=== PATIENT | female | born 1950 | race Caucasian/White ===

== ENCOUNTER → 2017-11-21 | Outpatient (CLI) | payer OTHER ==
[~2017-11-21] MED LIST: ABAC300; ACET325 PO; ACYC400 PO; ALBU90OI6 INH; ALBU90OI61 INH; ALUMAG30SU PO; BIOTIN1 MG PO; BISA10S PR; CEFD300 PO; CYCL10 PO; DOCU100 PO; ESTNORT PO; ESTR2 PO; FLUO10 PO; FLUO20 PO; Flonase 0.05% N16 GM; GABA100 PO; HYDACE10B; HYDACE5 PO; HYDR1TAB94 PO; K-Dur20 MEQ PO; METR500 PO; MUPI2TO TOP; MUSCLE RELAXER; NAPR500; NAPR500 PO; NICO14TP TOP; Norco 10-325 T1 EACH PO; Norco 5-325 Ta1 EACH PO; OMEP20ER PO; OXYACE5T PO; PARO20 PO; POLY17UD PO; POTCHL20ER PO; PRED5 PO; PROCODE120 PO; TRAZ150T57 PO; TRAZ50 PO; Tylenol325 MG PO; VALA500; VARE1 PO; Zanaflex4 MG; Zofran Odt4 MG SL
[2017-11-21 15:12] LABS: BASOPHILS ABSOLUTE AUTO 0.07 K/mm3 (0.00-0.23); BASOPHILS PERCENT AUTO 1 % (0-2); EOSINOPHILS ABSOLUTE AUTO 0.03 K/mm3 (0.00-0.68); EOSINOPHILS PERCENT AUTO 0 % (0-6); Hematocrit 44.8 % (33.0-51.0); Hemoglobin 15.2 g/dL (11.5-16.0); IMMATURE GRAN ABSOLUTE AUTO 0.03 K/mm3 (0.00-0.10); IMMATURE GRAN PERCENT AUTO 0 % (0-1); LYMPHOCYTES ABSOLUTE AUTO 0.92 K/mm3 (0.84-5.20); LYMPHOCYTES PERCENT AUTO 7 % (21-46); MONOCYTES ABSOLUTE AUTO 0.84 K/mm3 (0.16-1.47); MONOCYTES PERCENT AUTO 6 % (4-13); Mean Corpuscular HGB 31.1 pg (26.0-34.0); Mean Corpuscular HGB Conc 33.9 g/dL (31.5-36.5); Mean Corpuscular Volume 92 fL (80-100); NEUTROPHILS ABSOLUTE AUTO 11.86 K/mm3 (1.96-9.15); NEUTROPHILS PERCENT AUTO 86 % (41-73); Platelet Count 433 K/mm3 (150-400); RDW Coefficient Variation 13.5 % (11.7-14.2); RDW Standard Deviation 45.9 fL (35.1-46.3); Red Blood Cell Count 4.89 M/mm3 (3.80-5.20); White Blood Cell Count 13.75 K/mm3 (4.00-11.30)
[2017-11-21 15:21] LABS: Alanine Aminotransfer (ALT/SGP 24 U/L (12-78); Albumin, Blood 3.7 g/dL (3.4-5.0); Albumin/Globulin Ratio 0.9 (0.8-1.8); Alk Phos 114 U/L (40-126); Anion Gap 11 mmol/L (6-16); Aspartate Aminotrans (AST/SGOT 21 U/L (12-37); Bilirubin, Total 0.4 mg/dL (0.1-1.0); Blood Urea Nitrogen 24 mg/dL (8-24); Bun/Creatinine Ratio 26.1 (12.0-20.0); CO2, Blood 29 mmol/L (21-32); Calcium, Blood 9.8 mg/dL (8.5-10.1); Chloride, Blood 103 mmol/L (98-108); Creatinine, Blood 0.92 mg/dL (0.40-1.00); Globulin, Blood 4.1 g/dL (2.2-4.0); Glomerular Filtration Rate >60 (60-); Glucose, Blood 116 mg/dL (70-99); Potassium, Blood 4.2 mmol/L (3.5-5.5); Sodium, Blood 143 mmol/L (136-145); Total Protein, Blood 7.8 g/dL (6.4-8.2)
== END ==
LOC: LAB SHORT 15:04
PROVIDERS: Family Medicine
DX: R10.9 Unspecified abdominal pain (principal)
CPT/HCPCS: 80053; 83690; 85025

== ENCOUNTER 2018-05-22 03:02 | Inpatient (IN) | payer OTHER ==
[~2018-05-22] VITALS: Ht 154.9 cm; Wt 43.7 kg
[~2018-05-22 03:02] MED LIST changes: +Desyrel150 MG PO
[2018-05-22 04:19] LABS: BASOPHILS ABSOLUTE AUTO 0.08 K/mm3 (0.00-0.23); BASOPHILS PERCENT AUTO 0 % (0-2); EOSINOPHILS ABSOLUTE AUTO 0.18 K/mm3 (0.00-0.68); EOSINOPHILS PERCENT AUTO 1 % (0-6); Hematocrit 51.5 % (33.0-51.0); Hemoglobin 16.8 g/dL (11.5-16.0); IMMATURE GRAN ABSOLUTE AUTO 0.07 K/mm3 (0.00-0.10); IMMATURE GRAN PERCENT AUTO 0 % (0-1); LYMPHOCYTES ABSOLUTE AUTO 1.59 K/mm3 (0.84-5.20); LYMPHOCYTES PERCENT AUTO 8 % (21-46); MONOCYTES ABSOLUTE AUTO 1.44 K/mm3 (0.16-1.47); MONOCYTES PERCENT AUTO 8 % (4-13); Mean Corpuscular HGB 30.6 pg (26.0-34.0); Mean Corpuscular HGB Conc 32.6 g/dL (31.5-36.5); Mean Corpuscular Volume 94 fL (80-100); Mean Platelet Volume 8.7 fL (9.1-12.4); NEUTROPHILS ABSOLUTE AUTO 15.82 K/mm3 (1.96-9.15); NEUTROPHILS PERCENT AUTO 83 % (41-73); Platelet Count 316 K/mm3 (150-400); RDW Coefficient Variation 14.6 % (11.7-14.2); RDW Standard Deviation 50.5 fL (35.1-46.3); Red Blood Cell Count 5.49 M/mm3 (3.80-5.20); White Blood Cell Count 19.18 K/mm3 (4.00-11.30)
[2018-05-22 04:36] LABS: Alanine Aminotransfer (ALT/SGP 37 U/L (12-78); Albumin/Globulin Ratio 1.1 (0.8-1.8); Alk Phos 109 U/L (50-136); Anion Gap 7 mmol/L (6-16); Aspartate Aminotrans (AST/SGOT 23 U/L (12-37); Bilirubin, Total 0.4 mg/dL (0.1-1.0); Blood Urea Nitrogen 18 mg/dL (8-24); Bun/Creatinine Ratio 21.2 (12.0-20.0); CO2, Blood 29 mmol/L (21-32); Chloride, Blood 105 mmol/L (98-108); Creatinine, Blood 0.85 mg/dL (0.40-1.00); Globulin, Blood 3.7 g/dL (2.2-4.0); Glomerular Filtration Rate >60 (60-); Glucose, Blood 183 mg/dL (70-99); Potassium, Blood 4.3 mmol/L (3.5-5.5); Sodium, Blood 141 mmol/L (136-145); Total Protein, Blood 7.7 g/dL (6.4-8.2)
[2018-05-22] MEDS ORDERED: Voltaren100 GM TOP (09:56)
[2018-05-22] MEDS ORDERED: MIRT15 PO (09:56)
[2018-05-23 05:50] LABS: BASOPHILS ABSOLUTE AUTO 0.03 K/mm3 (0.00-0.23); BASOPHILS PERCENT AUTO 0 % (0-2); EOSINOPHILS ABSOLUTE AUTO 0.13 K/mm3 (0.00-0.68); EOSINOPHILS PERCENT AUTO 2 % (0-6); Hematocrit 43.3 % (33.0-51.0); Hemoglobin 14.1 g/dL (11.5-16.0); IMMATURE GRAN ABSOLUTE AUTO 0.02 K/mm3 (0.00-0.10); IMMATURE GRAN PERCENT AUTO 0 % (0-1); LYMPHOCYTES ABSOLUTE AUTO 2.22 K/mm3 (0.84-5.20); LYMPHOCYTES PERCENT AUTO 28 % (21-46); MONOCYTES ABSOLUTE AUTO 0.73 K/mm3 (0.16-1.47); MONOCYTES PERCENT AUTO 9 % (4-13); Mean Corpuscular HGB 30.7 pg (26.0-34.0); Mean Corpuscular HGB Conc 32.6 g/dL (31.5-36.5); Mean Corpuscular Volume 94 fL (80-100); Mean Platelet Volume 8.4 fL (9.1-12.4); NEUTROPHILS ABSOLUTE AUTO 4.82 K/mm3 (1.96-9.15); NEUTROPHILS PERCENT AUTO 61 % (41-73); Platelet Count 256 K/mm3 (150-400); RDW Coefficient Variation 14.6 % (11.7-14.2); RDW Standard Deviation 50.4 fL (35.1-46.3); White Blood Cell Count 7.95 K/mm3 (4.00-11.30)
[2018-05-23 06:17] LABS: Alanine Aminotransfer (ALT/SGP 26 U/L (12-78); Albumin, Blood 3.2 g/dL (3.4-5.0); Alk Phos 82 U/L (50-136); Anion Gap 8 mmol/L (6-16); Aspartate Aminotrans (AST/SGOT 18 U/L (12-37); Bilirubin, Total 0.7 mg/dL (0.1-1.0); Blood Urea Nitrogen 10 mg/dL (8-24); Bun/Creatinine Ratio 14.5 (12.0-20.0); CO2, Blood 25 mmol/L (21-32); Calcium, Blood 8.6 mg/dL (8.5-10.1); Chloride, Blood 110 mmol/L (98-108); Creatinine, Blood 0.69 mg/dL (0.40-1.00); Globulin, Blood 3.1 g/dL (2.2-4.0); Glomerular Filtration Rate >60 (60-); Glucose, Blood 76 mg/dL (70-99); Potassium, Blood 3.8 mmol/L (3.5-5.5); Sodium, Blood 143 mmol/L (136-145); Total Protein, Blood 6.3 g/dL (6.4-8.2)
[2018-05-23] MEDS ORDERED: VARE1 PO (11:48)
== END 2018-05-23 12:16 | disposition home or self-care (01) | DRG 389 ==
LOC: ER 03:02 → ERHOLD 05:25 → SURS 05:25
PROVIDERS: Emergency Medicine; Internal Medicine
DX: K56.609 Unspecified intestinal obstruction, unspecified as to partial versus complete obstruction (principal); Z68.1 Body mass index [BMI] 19.9 or less, adult; I25.2 Old myocardial infarction; F17.210 Nicotine dependence, cigarettes, uncomplicated; J44.9 Chronic obstructive pulmonary disease, unspecified; M81.0 Age-related osteoporosis without current pathological fracture; G43.909 Migraine, unspecified, not intractable, without status migrainosus; F41.9 Anxiety disorder, unspecified; E86.0 Dehydration; Z90.49 Acquired absence of other specified parts of digestive tract; D72.829 Elevated white blood cell count, unspecified; E88.09 Other disorders of plasma-protein metabolism, not elsewhere classified
CPT/HCPCS: 36415; 74176; 80053; 83690; 85025; 85027; 96361; 96374; 96375; 96376; 99285-25; J1650; J2405; J3010; J7030

== ENCOUNTER 2018-10-09 08:30 | Day surgery (SDC) | payer OTHER, SELFPAY ==
[~2018-10-09] VITALS: Ht 154.9 cm; Wt 43.5 kg
[~2018-10-09 08:30] MED LIST changes: +MIRT15 PO; +TRAM50 PO; +Voltaren100 GM TOP
== END 2018-10-09 10:36 | disposition home or self-care (01) ==
LOC: ORSCSDS 08:30
PROVIDERS: Surgery
PROC: 0DJD8ZZ Inspection of Lower Intestinal Tract, Via Natural or Artificial Opening Endoscopic (ICD-10-PCS; principal; 2018-10-09 09:45)
DX: Z12.11 Encounter for screening for malignant neoplasm of colon (principal); Z86.010 Personal history of colon polyps; E03.9 Hypothyroidism, unspecified; I25.2 Old myocardial infarction; F41.8 Other specified anxiety disorders; J44.9 Chronic obstructive pulmonary disease, unspecified; Z87.891 Personal history of nicotine dependence; Z79.899 Other long term (current) drug therapy
CPT/HCPCS: J2704; J7120

== ENCOUNTER 2018-12-22 12:56 | Emergency (ER) | payer OTHER, SELFPAY ==
[~2018-12-22] VITALS: Ht 154.9 cm; Wt 45.4 kg
[2018-12-22 13:29] LABS: Source, Urine Clean Catch
[2018-12-22 13:29] LABS: BASOPHILS ABSOLUTE AUTO 0.03 K/mm3 (0.00-0.23); BASOPHILS PERCENT AUTO 0 % (0-2); EOSINOPHILS ABSOLUTE AUTO 0.06 K/mm3 (0.00-0.68); EOSINOPHILS PERCENT AUTO 1 % (0-6); Hematocrit 48.5 % (33.0-51.0); Hemoglobin 15.5 g/dL (11.5-16.0); IMMATURE GRAN ABSOLUTE AUTO 0.01 K/mm3 (0.00-0.10); IMMATURE GRAN PERCENT AUTO 0 % (0-1); LYMPHOCYTES ABSOLUTE AUTO 2.22 K/mm3 (0.84-5.20); LYMPHOCYTES PERCENT AUTO 30 % (21-46); MONOCYTES ABSOLUTE AUTO 0.65 K/mm3 (0.16-1.47); MONOCYTES PERCENT AUTO 9 % (4-13); Mean Corpuscular HGB 29.8 pg (26.0-34.0); Mean Corpuscular Volume 93 fL (80-100); Mean Platelet Volume 8.8 fL (9.1-12.4); NEUTROPHILS ABSOLUTE AUTO 4.52 K/mm3 (1.96-9.15); NEUTROPHILS PERCENT AUTO 60 % (41-73); Platelet Count 356 K/mm3 (150-400); RDW Coefficient Variation 14.4 % (11.7-14.2); RDW Standard Deviation 49.9 fL (35.1-46.3); White Blood Cell Count 7.49 K/mm3 (4.00-11.30)
[2018-12-22 13:34] LABS: Bilirubin, Urine Neg (Neg); Blood, Urine 3+ (Neg); Color, Urine Yellow (P-Yellow); Glucose Qualitative, Urine Neg (Neg); Ketones, Urine 4+ (Neg); Specific Gravity, Urine 1.025 (1.003-1.022); Urobilinogen, Urine 1+ (Normal)
[2018-12-22 13:44] LABS: Leukocyte Esterase, Urine 1+ (Neg); Nitrite, Urine Pos (Neg); Protein, Urine 2+ (Neg)
[2018-12-22 13:46] LABS: Appearance, Urine Hazy (Clear)
[2018-12-22 13:57] LABS: Alanine Aminotransfer (ALT/SGP 20 U/L (12-78); Albumin, Blood 3.9 g/dL (3.4-5.0); Alk Phos 103 U/L (50-136); Anion Gap 6 mmol/L (6-16); Aspartate Aminotrans (AST/SGOT 19 U/L (12-37); Bilirubin, Total 0.5 mg/dL (0.1-1.0); Blood Urea Nitrogen 19 mg/dL (8-24); Bun/Creatinine Ratio 24.6 (12.0-20.0); CO2, Blood 26 mmol/L (21-32); Calcium, Blood 9.5 mg/dL (8.5-10.1); Chloride, Blood 106 mmol/L (98-108); Creatinine, Blood 0.77 mg/dL (0.40-1.00); Globulin, Blood 3.8 g/dL (2.2-4.0); Glomerular Filtration Rate >60 (60-); Glucose, Blood 74 mg/dL (70-99); Potassium, Blood 3.8 mmol/L (3.5-5.5); Sodium, Blood 138 mmol/L (136-145); Total Protein, Blood 7.7 g/dL (6.4-8.2)
[2018-12-22 14:03] LABS: Bacteria Few /hpf; Calcium Oxalate Crystals Many /hpf; Squamous Epithelial Cells Few /hpf (Few)
[2018-12-22] MEDS ORDERED: Roxicodone5 MG PO (17:16)
[2018-12-22] MEDS ORDERED: Bentyl20 MG PO (17:16)
[2018-12-22] MEDS ORDERED: ONDA4ODT MM (17:16)
== END 2018-12-22 17:34 | disposition home or self-care (01) ==
LOC: ER 12:56
PROVIDERS: Physician Assistant
DX: K52.9 Noninfective gastroenteritis and colitis, unspecified (principal); Z88.8 Allergy status to other drugs, medicaments and biological substances; Z79.899 Other long term (current) drug therapy; J44.9 Chronic obstructive pulmonary disease, unspecified; F32.9 Major depressive disorder, single episode, unspecified; G43.909 Migraine, unspecified, not intractable, without status migrainosus; I25.2 Old myocardial infarction; F17.210 Nicotine dependence, cigarettes, uncomplicated
CPT/HCPCS: 36415; 74177; 80053; 81001; 83690; 85025; 87086; 96372-59; 96374-59; 96375; 99284-25; J0500; J2405; J3010; Q9967

== ENCOUNTER 2019-02-23 19:52 | Emergency (ER) | payer OTHER ==
[~2019-02-23] VITALS: Ht 154.9 cm; Wt 43.1 kg
[~2019-02-23 19:52] MED LIST changes: +Bentyl20 MG PO; +ONDA4ODT MM; +Roxicodone5 MG PO
[2019-02-23 20:35] LABS: BASOPHILS ABSOLUTE AUTO 0.05 K/mm3 (0.00-0.23); BASOPHILS PERCENT AUTO 1 % (0-2); EOSINOPHILS ABSOLUTE AUTO 0.11 K/mm3 (0.00-0.68); EOSINOPHILS PERCENT AUTO 1 % (0-6); Hematocrit 47.5 % (33.0-51.0); Hemoglobin 15.7 g/dL (11.5-16.0); IMMATURE GRAN ABSOLUTE AUTO 0.02 K/mm3 (0.00-0.10); IMMATURE GRAN PERCENT AUTO 0 % (0-1); LYMPHOCYTES ABSOLUTE AUTO 1.14 K/mm3 (0.84-5.20); LYMPHOCYTES PERCENT AUTO 11 % (21-46); MONOCYTES ABSOLUTE AUTO 0.99 K/mm3 (0.16-1.47); MONOCYTES PERCENT AUTO 10 % (4-13); Mean Corpuscular HGB 30.1 pg (26.0-34.0); Mean Corpuscular HGB Conc 33.1 g/dL (31.5-36.5); Mean Corpuscular Volume 91 fL (80-100); Mean Platelet Volume 8.9 fL (9.1-12.4); NEUTROPHILS ABSOLUTE AUTO 7.86 K/mm3 (1.96-9.15); NEUTROPHILS PERCENT AUTO 77 % (41-73); Platelet Count 280 K/mm3 (150-400); RDW Coefficient Variation 14.1 % (11.7-14.2); RDW Standard Deviation 47.2 fL (35.1-46.3); Red Blood Cell Count 5.21 M/mm3 (3.80-5.20); White Blood Cell Count 10.17 K/mm3 (4.00-11.30)
[2019-02-23 20:51] LABS: Anion Gap 7 mmol/L (6-16); Blood Urea Nitrogen 20 mg/dL (8-24); Bun/Creatinine Ratio 24.9 (12.0-20.0); CO2, Blood 25 mmol/L (21-32); Calcium, Blood 9.3 mg/dL (8.5-10.1); Chloride, Blood 107 mmol/L (98-108); Glomerular Filtration Rate >60 (60-); Glucose, Blood 136 mg/dL (70-99); Potassium, Blood 3.9 mmol/L (3.5-5.5); Sodium, Blood 139 mmol/L (136-145)
[2019-02-23 21:57] LABS: Source, Urine Voided
[2019-02-23 22:00] LABS: Blood, Urine 4+ (Neg); Glucose Qualitative, Urine Neg (Neg); Ketones, Urine 3+ (Neg); Leukocyte Esterase, Urine 2+ (Neg); Nitrite, Urine Neg (Neg); Protein, Urine 2+ (Neg); Specific Gravity, Urine 1.025 (1.003-1.022); Urobilinogen, Urine 1+ (Normal)
[2019-02-23 22:06] LABS: Appearance, Urine Hazy (Clear); Bilirubin, Urine 1+ (Neg); Color, Urine Amber (P-Yellow)
[2019-02-23 22:07] LABS: Bacteria Many /hpf; Mucus Mod (0-Heavy); Squamous Epithelial Cells Mod /hpf (Few)
[2019-02-23] MEDS ORDERED: HYDR1TAB94 PO (23:51)
[2019-02-23] MEDS ORDERED: Zofran4 MG PO (23:51)
[2019-02-24 00:25] LABS: Adenovirus F 40/41 Not Detected (NOT DETECT); Astrovirus Not Detected (NOT DETECT); Campylobacter Sp Not Detected (NOT DETECT); Cryptosporidium Not Detected (NOT DETECT); Cyclospora Cayetanensis Not Detected (NOT DETECT); E. Coli O157 Not Detected (NOT DETECT); Entamoeba Histolytica Not Detected (NOT DETECT); Enteroaggregative E. coli-EAEC Not Detected (NOT DETECT); Enteropathogenic E. coli-EPEC Detected (NOT DETECT); Enterotoxigenic E. coli-ETEC Not Detected (NOT DETECT); Giardia Lamblia Not Detected (NOT DETECT); Norovirus GI/GII Not Detected (NOT DETECT); Plesiomonas Shigelloides Not Detected (NOT DETECT); Rotavirus A Not Detected (NOT DETECT); Salmonella Sp Not Detected (NOT DETECT); Sapovirus Not Detected (NOT DETECT); Shiga Toxin-prod E. coli-STEC Not Detected (NOT DETECT); Shigella/Enteroin E. coli-EIEC Not Detected (NOT DETECT); Vibrio Cholerae Not Detected (NOT DETECT); Vibrio Sp Not Detected (NOT DETECT); Yersinia Enterocolitica Not Detected (NOT DETECT)
== END 2019-02-24 00:09 | disposition home or self-care (01) ==
LOC: ER 19:52
PROVIDERS: Emergency Medicine
DX: R10.9 Unspecified abdominal pain (principal); R19.7 Diarrhea, unspecified; M79.10 Myalgia, unspecified site; J44.9 Chronic obstructive pulmonary disease, unspecified; F32.9 Major depressive disorder, single episode, unspecified; G43.909 Migraine, unspecified, not intractable, without status migrainosus; I25.2 Old myocardial infarction; F17.210 Nicotine dependence, cigarettes, uncomplicated; Z85.42 Personal history of malignant neoplasm of other parts of uterus; Z85.89 Personal history of malignant neoplasm of other organs and systems
CPT/HCPCS: 0097U; 36415; 71046; 80048; 81001; 85025; 87086; 99283-25; A9270-GY; J1170; J2405; J7120

== ENCOUNTER 2019-12-21 10:56 | Inpatient (IN) | payer OTHER ==
[~2019-12-21] VITALS: Ht 154.9 cm; Wt 42.7 kg
[~2019-12-21 10:56] MED LIST changes: +Zofran4 MG PO
[2019-12-21 11:45] LABS: BASOPHILS ABSOLUTE AUTO 0.03 K/mm3 (0.00-0.23); BASOPHILS PERCENT AUTO 0 % (0-2); EOSINOPHILS ABSOLUTE AUTO 0.09 K/mm3 (0.00-0.68); EOSINOPHILS PERCENT AUTO 1 % (0-6); Hematocrit 42.8 % (33.0-51.0); IMMATURE GRAN ABSOLUTE AUTO 0.03 K/mm3 (0.00-0.10); IMMATURE GRAN PERCENT AUTO 0 % (0-1); LYMPHOCYTES ABSOLUTE AUTO 1.26 K/mm3 (0.84-5.20); LYMPHOCYTES PERCENT AUTO 11 % (21-46); MONOCYTES ABSOLUTE AUTO 0.85 K/mm3 (0.16-1.47); MONOCYTES PERCENT AUTO 8 % (4-13); Mean Corpuscular HGB 29.7 pg (26.0-34.0); Mean Corpuscular HGB Conc 32.7 g/dL (31.5-36.5); Mean Corpuscular Volume 91 fL (80-100); Mean Platelet Volume 9.3 fL (9.1-12.4); NEUTROPHILS ABSOLUTE AUTO 8.83 K/mm3 (1.96-9.15); NEUTROPHILS PERCENT AUTO 80 % (41-73); Platelet Count 291 K/mm3 (150-400); RDW Coefficient Variation 14.6 % (11.7-14.2); RDW Standard Deviation 49.5 fL (35.1-46.3); Red Blood Cell Count 4.71 M/mm3 (3.80-5.20); White Blood Cell Count 11.09 K/mm3 (4.00-11.30)
[2019-12-21 12:08] LABS: Alanine Aminotransfer (ALT/SGP 21 U/L (12-78); Albumin, Blood 3.9 g/dL (3.4-5.0); Albumin/Globulin Ratio 1.1 (0.8-1.8); Alk Phos 89 U/L (50-136); Anion Gap 6 mmol/L (6-16); Aspartate Aminotrans (AST/SGOT 30 U/L (12-37); Bilirubin, Total 0.6 mg/dL (0.1-1.0); Blood Urea Nitrogen 21 mg/dL (8-24); Bun/Creatinine Ratio 26.8 (12.0-20.0); CO2, Blood 28 mmol/L (21-32); Calcium, Blood 9.3 mg/dL (8.5-10.1); Chloride, Blood 105 mmol/L (98-108); Creatinine, Blood 0.78 mg/dL (0.40-1.00); Globulin, Blood 3.4 g/dL (2.2-4.0); Glomerular Filtration Rate >60 (60-); Glucose, Blood 115 mg/dL (70-99); Potassium, Blood 4.7 mmol/L (3.5-5.5); Sodium, Blood 139 mmol/L (136-145); Total Protein, Blood 7.3 g/dL (6.4-8.2)
[2019-12-21] MEDS ORDERED: Norco 10-325 T1 EACH PO (14:32)
[2019-12-21] MEDS ORDERED: GABA300 PO (14:33)
--- NOTE | 2019-12-21 17:15 | NUR ---
PT ARRIVED TO THE MEDICAL FLOOR FROM THE ER, A/OX3 PLEASANT AND COOPERATIVE, NG TUBE SECURE, THE PT APPEARS TO BE BREATHING EASILY WITHOUT OXYGEN AT THIS TIME, THE PT WAS ORIENTED TO THE ROOM LAYOUT AND CALL SYSTEM, CALL LIGHT IN REACH, NG TUBE SET TO LOW INTERMITTEN SUCTION, REPORTS PAIN CONTROL AT THIS TIME
--- NOTE | 2019-12-21 18:27 | NUR ---
PT IS A/OX3, PLEASANT AND COOPERATIVE, PT IS A NEW ADMIT TODAY FOR SBO, THE PT HAS A NG TUBE IN PLACE AND SECURE AT THIS TIME ON LOW INTERMITTEN SUCTION ONLY A SMALL AMOUNT OF WHITE FOAMY MUCUS SEEN AT THIS TIME, THE PT DENIES FEELING NAUSEATED AT THIS TIME, THE PT APPEARS TO BE BREATHING EASILY WITHOUT OXYGEN AT THIS TIME, CALL LIGHT IN REACH, NO OTHER CHANGES NOTICED SO FAR THIS SHIFT
--- NOTE | 2019-12-22 04:53 | NUR ---
SHIFT SUMMARY: PT IS ALERT AND ORIENTED. PT IS CALM AND COOPERATIVE WITH CARE. PT CALLS APPROPRIATELY. PT IS INDEPENDENT IN THE ROOM. PT REPORTS ABD DISCOMFORT ON ONE OCCASION, GAVE PRN DILAUDID. PT DENIES NAUSEA, VOMITING, AND SOB. NG TUBE IN PLACE SET TO LOW INTERMITTENT SUCTION, VERY LITTLE OUTPUT, WILL FOLLOW UP WITH DAY NURSE TO SEE ABOUT DISCONTINUATION PER EVALUATION. PT SLEPT MUCH OF THE NIGHT WHEN NOT DISTURBED. NO ACUTE CHANGES OR COMPLICATIONS OVERNIGHT. BED IN LOW POSITION, CALL LIGHT WITHIN REACH. WILL REPORT TO DAY NURSE.
[2019-12-22 05:05] LABS: BASOPHILS ABSOLUTE AUTO 0.04 K/mm3 (0.00-0.23); BASOPHILS PERCENT AUTO 1 % (0-2); EOSINOPHILS PERCENT AUTO 2 % (0-6); Hematocrit 40.1 % (33.0-51.0); IMMATURE GRAN ABSOLUTE AUTO 0.02 K/mm3 (0.00-0.10); IMMATURE GRAN PERCENT AUTO 0 % (0-1); LYMPHOCYTES ABSOLUTE AUTO 2.79 K/mm3 (0.84-5.20); LYMPHOCYTES PERCENT AUTO 34 % (21-46); MONOCYTES ABSOLUTE AUTO 0.76 K/mm3 (0.16-1.47); MONOCYTES PERCENT AUTO 9 % (4-13); Mean Corpuscular HGB 29.9 pg (26.0-34.0); Mean Corpuscular HGB Conc 32.4 g/dL (31.5-36.5); Mean Corpuscular Volume 92 fL (80-100); Mean Platelet Volume 9.4 fL (9.1-12.4); NEUTROPHILS ABSOLUTE AUTO 4.39 K/mm3 (1.96-9.15); NEUTROPHILS PERCENT AUTO 54 % (41-73); Platelet Count 251 K/mm3 (150-400); RDW Coefficient Variation 14.8 % (11.7-14.2); RDW Standard Deviation 50.6 fL (35.1-46.3); Red Blood Cell Count 4.35 M/mm3 (3.80-5.20)
[2019-12-22 05:30] LABS: Alanine Aminotransfer (ALT/SGP 16 U/L (12-78); Albumin, Blood 3.7 g/dL (3.4-5.0); Albumin/Globulin Ratio 1.3 (0.8-1.8); Alk Phos 67 U/L (50-136); Anion Gap 5 mmol/L (6-16); Aspartate Aminotrans (AST/SGOT 16 U/L (12-37); Bilirubin, Total 0.6 mg/dL (0.1-1.0); Blood Urea Nitrogen 15 mg/dL (8-24); Bun/Creatinine Ratio 18.3 (12.0-20.0); CO2, Blood 30 mmol/L (21-32); Calcium, Blood 9.1 mg/dL (8.5-10.1); Chloride, Blood 106 mmol/L (98-108); Creatinine, Blood 0.82 mg/dL (0.40-1.00); Globulin, Blood 2.9 g/dL (2.2-4.0); Glomerular Filtration Rate >60 (60-); Glucose, Blood 75 mg/dL (70-99); Magnesium, Blood 2.3 mg/dL (1.6-2.4); Potassium, Blood 3.8 mmol/L (3.5-5.5); Sodium, Blood 141 mmol/L (136-145); Total Protein, Blood 6.6 g/dL (6.4-8.2)
--- NOTE | 2019-12-22 18:43 | NUR ---
PT IS A/OX3, PLEASANT AND COOPERATIVE, THE PT IS UP IND TO THE BSC, THE PT WAS UP AND WALKED OUT IN THE BELLO TODAY. NG TUBE WAS CLAMPED AND THEN BACK TO LOW INTERMITTEN SUCTION AFTER RETURN TO THE ROOM, THE PT CONTINUES TO BE NPO AT THIS TIME EXCEPT A SMALL AMOUNT OF ICE CHIPS, THE PT WAS MEDICATED X 2 TODAY FOR ABD PAIN AND NAUSEA X1, FAMILY IS AT THE BEDSIDE AT THIS TIME, CALL LIGHT IN REACH, NG TUBE SECURE AND ON
--- NOTE | 2019-12-23 02:41 | NUR ---
SHIFT SUMMARY HAS BEEN RESTING QUIETLY WITH FEW INTERRUPTIONS. NG TUBE IN PLACE - SETTINGS LOW/INT SUCTION. SM AMTS OF DARK RETURNS. IVF INFUSING AND ANALGESICS ADMINISTERED PER MD ORDERS - SEE MAR FOR DETAILS. CALL LIGHT IN REACH. NO NOTED ACUTE DISTRESS AT THIS TIME.
[2019-12-23 05:09] LABS: BASOPHILS ABSOLUTE AUTO 0.04 K/mm3 (0.00-0.23); BASOPHILS PERCENT AUTO 0 % (0-2); EOSINOPHILS ABSOLUTE AUTO 0.11 K/mm3 (0.00-0.68); EOSINOPHILS PERCENT AUTO 1 % (0-6); Hematocrit 42.3 % (33.0-51.0); Hemoglobin 13.5 g/dL (11.5-16.0); IMMATURE GRAN ABSOLUTE AUTO 0.02 K/mm3 (0.00-0.10); IMMATURE GRAN PERCENT AUTO 0 % (0-1); LYMPHOCYTES ABSOLUTE AUTO 2.42 K/mm3 (0.84-5.20); LYMPHOCYTES PERCENT AUTO 23 % (21-46); MONOCYTES ABSOLUTE AUTO 1.12 K/mm3 (0.16-1.47); MONOCYTES PERCENT AUTO 11 % (4-13); Mean Corpuscular HGB 29.5 pg (26.0-34.0); Mean Corpuscular HGB Conc 31.9 g/dL (31.5-36.5); Mean Corpuscular Volume 93 fL (80-100); Mean Platelet Volume 8.5 fL (9.1-12.4); NEUTROPHILS ABSOLUTE AUTO 6.97 K/mm3 (1.96-9.15); NEUTROPHILS PERCENT AUTO 65 % (41-73); Platelet Count 254 K/mm3 (150-400); RDW Coefficient Variation 14.5 % (11.7-14.2); RDW Standard Deviation 49.5 fL (35.1-46.3); Red Blood Cell Count 4.57 M/mm3 (3.80-5.20); White Blood Cell Count 10.68 K/mm3 (4.00-11.30)
[2019-12-23 05:33] LABS: Alanine Aminotransfer (ALT/SGP 16 U/L (12-78); Albumin, Blood 3.7 g/dL (3.4-5.0); Albumin/Globulin Ratio 1.2 (0.8-1.8); Alk Phos 87 U/L (50-136); Anion Gap 11 mmol/L (6-16); Aspartate Aminotrans (AST/SGOT 19 U/L (12-37); Bilirubin, Total 0.7 mg/dL (0.1-1.0); Blood Urea Nitrogen 16 mg/dL (8-24); Bun/Creatinine Ratio 21.2 (12.0-20.0); CO2, Blood 20 mmol/L (21-32); Calcium, Blood 8.9 mg/dL (8.5-10.1); Chloride, Blood 106 mmol/L (98-108); Creatinine, Blood 0.76 mg/dL (0.40-1.00); Globulin, Blood 3.2 g/dL (2.2-4.0); Glomerular Filtration Rate >60 (60-); Glucose, Blood 60 mg/dL (70-99); Potassium, Blood 4.1 mmol/L (3.5-5.5); Sodium, Blood 137 mmol/L (136-145); Total Protein, Blood 6.9 g/dL (6.4-8.2)
--- NOTE | 2019-12-23 09:10 | NUR ---
PT TAKEN TO RADIOLOGY FOR PROCEDURE, TRANSPORTED VIA W/C
--- NOTE | 2019-12-23 15:59 | NUR ---
PT A&O X4, PT HS NG TUBE IN PLACE WITH INTERMITTENT SUCTION, PT HAD IMAGING STUDY PREFORMED WITH CONTRAST AND PT RETURNED FROM PROCEDURE REQUESTING PAIN MEDS X1. PT HAS IV IN PLACE LEFT FA WITH CLINAMIX INFUSING. PT IS NPO AT THIS TIME WITH ICE CHIPS ONLY. PT IS INDEPENDENT IN ROOM WITH CALL LIGHT IN REACH WILL REPORT TO LORIE ALDRIDGE.
--- NOTE | 2019-12-23 17:58 | NUR ---
PROVIDER UPDATE CALLED AND PLACED ORDERS TO CLAMP NG TUBE, CHANGE DIET ODERS TO CLEAR.
--- NOTE | 2019-12-23 21:42 | NUR ---
PT AWAKE AND WATCHING TV WITH CLINIMIX INFUSING PER MD ORDERS. AFFECT CHEERFUL. CALL LIGHT IN REACH. NG TUBE IN PLACE AND CLAMPED. TOPLERATING CLEAR LIQUIDS
--- NOTE | 2019-12-24 04:55 | NUR ---
SHIFT SUMMARY HAS BEEN RESTING QUIETLY WITH FEW INTERRUPTIONS SINCE TAKING SLEEP MED AROUND 2300. CLINIMIX CONTINUES TO INFUSE AT 75 ML/HR. NO COMPLAINTS VOICED AT THIS TIME. CALL LIGHT IN REACH.
[2019-12-24 04:59] LABS: BASOPHILS ABSOLUTE AUTO 0.03 K/mm3 (0.00-0.23); BASOPHILS PERCENT AUTO 0 % (0-2); EOSINOPHILS PERCENT AUTO 2 % (0-6); Hemoglobin 13.4 g/dL (11.5-16.0); IMMATURE GRAN ABSOLUTE AUTO 0.03 K/mm3 (0.00-0.10); IMMATURE GRAN PERCENT AUTO 0 % (0-1); LYMPHOCYTES ABSOLUTE AUTO 1.53 K/mm3 (0.84-5.20); LYMPHOCYTES PERCENT AUTO 14 % (21-46); MONOCYTES ABSOLUTE AUTO 1.28 K/mm3 (0.16-1.47); MONOCYTES PERCENT AUTO 11 % (4-13); Mean Corpuscular HGB 29.5 pg (26.0-34.0); Mean Corpuscular HGB Conc 32.7 g/dL (31.5-36.5); Mean Corpuscular Volume 90 fL (80-100); Mean Platelet Volume 9.1 fL (9.1-12.4); NEUTROPHILS ABSOLUTE AUTO 8.29 K/mm3 (1.96-9.15); NEUTROPHILS PERCENT AUTO 73 % (41-73); Platelet Count 266 K/mm3 (150-400); RDW Coefficient Variation 14.2 % (11.7-14.2); RDW Standard Deviation 47.4 fL (35.1-46.3); Red Blood Cell Count 4.54 M/mm3 (3.80-5.20); White Blood Cell Count 11.36 K/mm3 (4.00-11.30)
[2019-12-24 05:36] LABS: Alanine Aminotransfer (ALT/SGP 15 U/L (12-78); Albumin, Blood 3.4 g/dL (3.4-5.0); Alk Phos 79 U/L (50-136); Anion Gap 6 mmol/L (6-16); Aspartate Aminotrans (AST/SGOT 15 U/L (12-37); Bilirubin, Total 0.7 mg/dL (0.1-1.0); Blood Urea Nitrogen 20 mg/dL (8-24); Bun/Creatinine Ratio 31.1 (12.0-20.0); CO2, Blood 25 mmol/L (21-32); Chloride, Blood 111 mmol/L (98-108); Creatinine, Blood 0.64 mg/dL (0.40-1.00); Globulin, Blood 3.3 g/dL (2.2-4.0); Glomerular Filtration Rate >60 (60-); Glucose, Blood 152 mg/dL (70-99); Magnesium, Blood 2.3 mg/dL (1.6-2.4); Phosphorus, Blood 2.1 mg/dL (2.5-4.9); Potassium, Blood 3.8 mmol/L (3.5-5.5); Sodium, Blood 142 mmol/L (136-145); Total Protein, Blood 6.7 g/dL (6.4-8.2)
--- NOTE | 2019-12-24 11:45 | NUR ---
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 Patient also shares with me about her spiritual journey and the difference her aung has made as she encountered many struggles in life. Patient shares personal information about her family. I listen empathically, normalize patient's experience, reinforce helpful attitudes and practices and provide prayer. Patient responds well and shows signs of uplifted aung. I will continue to remain available to patient and family.
--- NOTE | 2019-12-24 16:59 | NUR ---
PT DISCHARGED AT 1530 AOX4 AND COOPERATIVE OF CARE. PT DENIED ANY PAIN OR NAUSEA. PT INDEPENDENT IN ROOM AND CALLED APPROPRIATELY. PT HAD ALL PAPERWORK REVIEWED AND [facility] IS TO CALL AND SCHEDULE FOLLOW UP APPOINTMENT. IV REMOVED AND PT TOLERATED WELL EDUCATIONAL MATERIAL SENT WITH PT. NO DISTRESS NOTED ESCORTED VIA WHEELCHAIR BY THIS SUPERVISOR [employer] TO N ENTRANCE TO TRANSPORT.
== END 2019-12-24 15:55 | disposition home or self-care (01) | DRG 390 ==
LOC: ER 10:56 → MEDS 15:16
PROVIDERS: Hospitalist; Physician Assistant; ADMIT Internal Medicine Gastroenterology
PROC: 0D9670Z Drainage of Stomach with Drainage Device, Via Natural or Artificial Opening (ICD-10-PCS; principal; 2019-12-21)
DX: K56.609 Unspecified intestinal obstruction, unspecified as to partial versus complete obstruction (principal); G89.29 Other chronic pain; M54.5 Low back pain; N39.41 Urge incontinence; G47.9 Sleep disorder, unspecified; Z87.891 Personal history of nicotine dependence
CPT/HCPCS: 36415; 74177; 74250; 80053; 83605; 83690; 83735; 84100; 84484; 85025; 93005; 93010; 96361; 96372-59; 96374-59; 96375; 96376; 99285-25; C9113; J1170; J1650; J2405; J7120; J7131; Q9967

== ENCOUNTER 2019-12-30 21:20 | Inpatient (IN) | payer OTHER ==
[~2019-12-30] VITALS: Ht 154.9 cm; Wt 45.1 kg
[~2019-12-30 21:20] MED LIST changes: +GABA300 PO
[2019-12-30 22:30] LABS: BASOPHILS ABSOLUTE AUTO 0.04 K/mm3 (0.00-0.23); BASOPHILS PERCENT AUTO 1 % (0-2); EOSINOPHILS ABSOLUTE AUTO 0.27 K/mm3 (0.00-0.68); EOSINOPHILS PERCENT AUTO 3 % (0-6); Hematocrit 39.8 % (33.0-51.0); Hemoglobin 12.8 g/dL (11.5-16.0); IMMATURE GRAN ABSOLUTE AUTO 0.02 K/mm3 (0.00-0.10); IMMATURE GRAN PERCENT AUTO 0 % (0-1); LYMPHOCYTES ABSOLUTE AUTO 3.04 K/mm3 (0.84-5.20); LYMPHOCYTES PERCENT AUTO 35 % (21-46); MONOCYTES ABSOLUTE AUTO 0.95 K/mm3 (0.16-1.47); MONOCYTES PERCENT AUTO 11 % (4-13); Mean Corpuscular HGB 29.6 pg (26.0-34.0); Mean Corpuscular HGB Conc 32.2 g/dL (31.5-36.5); Mean Corpuscular Volume 92 fL (80-100); Mean Platelet Volume 9.3 fL (9.1-12.4); NEUTROPHILS ABSOLUTE AUTO 4.38 K/mm3 (1.96-9.15); NEUTROPHILS PERCENT AUTO 50 % (41-73); Platelet Count 408 K/mm3 (150-400); RDW Coefficient Variation 14.7 % (11.7-14.2); RDW Standard Deviation 50.4 fL (35.1-46.3); Red Blood Cell Count 4.32 M/mm3 (3.80-5.20)
[2019-12-30 22:42] LABS: Alanine Aminotransfer (ALT/SGP 23 U/L (12-78); Albumin, Blood 3.8 g/dL (3.4-5.0); Albumin/Globulin Ratio 1.1 (0.8-1.8); Alk Phos 95 U/L (50-136); Anion Gap 6 mmol/L (6-16); Aspartate Aminotrans (AST/SGOT 22 U/L (12-37); Bilirubin, Total 0.2 mg/dL (0.1-1.0); Blood Urea Nitrogen 21 mg/dL (8-24); Bun/Creatinine Ratio 24.2 (12.0-20.0); CO2, Blood 29 mmol/L (21-32); Calcium, Blood 9.3 mg/dL (8.5-10.1); Chloride, Blood 106 mmol/L (98-108); Creatinine, Blood 0.87 mg/dL (0.40-1.00); Globulin, Blood 3.4 g/dL (2.2-4.0); Glomerular Filtration Rate >60 (60-); Glucose, Blood 107 mg/dL (70-99); Potassium, Blood 4.1 mmol/L (3.5-5.5); Sodium, Blood 141 mmol/L (136-145); Total Protein, Blood 7.2 g/dL (6.4-8.2)
--- NOTE | 2019-12-31 04:49 | NUR ---
TOOLROOM CLERK SUMMARY NEW ADMIT FROM THE ED TONIGHT. PT AAOX4 AND VERY PLEASANT. ADMITTED FOR SBO. PT WAS JUST DISCHARGED LAST WEEK FOR SAME DX. PT COMPLAINS OF ABD PAIN, MEDICATED WITH DILAUDID AND FENTANYL FOR BREAKTHROUGH PAIN. NG TUBE PLACED WITH VERY MINIMAL OUTPUT NOTED. PT TOLERATED NG PLACEMENT VERY WELL. NPO AT THIS TIME, ON IV FLUIDS. PT WAS ON 2L O2 VIA NC IN ED BUT HAS BE ON RA SINCE COMING TO THE FLOOR. VSS, WILL CONTINUE TO MONITOR.
[2019-12-31 05:51] LABS: Anion Gap 5 mmol/L (6-16); Blood Urea Nitrogen 16 mg/dL (8-24); Bun/Creatinine Ratio 21.9 (12.0-20.0); CO2, Blood 26 mmol/L (21-32); Calcium, Blood 8.9 mg/dL (8.5-10.1); Chloride, Blood 106 mmol/L (98-108); Creatinine, Blood 0.73 mg/dL (0.40-1.00); Glomerular Filtration Rate >60 (60-); Glucose, Blood 135 mg/dL (70-99); Potassium, Blood 3.9 mmol/L (3.5-5.5); Sodium, Blood 137 mmol/L (136-145)
--- NOTE | 2019-12-31 06:14 | NUR ---
PT HAVING N/V. GIVEN ZOFRAN. PT VOMITED 100 ML X2 OF LIGHT CLEAR/YELLOW FLUID. 300 ML FLUID IN SUCTION CANISTER AT THIS TIME. ATTEMPTED TO HELP PT REPOSITION TO ENCOURAGE BETTER SUCTION. WILL CONTINUE TO MONITOR.
--- NOTE | 2019-12-31 15:11 | NUR ---
Patient is sitting up in bed and alert. Patient immediately tells me about the events that led to patient's hospitalization, what pain and discomfort she felt throughout the night and the relief that she finally got early this morning. Patient shares about the her fears of having a colostomy bag and her hopes that surgery can help with the issue but not leave her "stuck with a bag the rest of her life." I listen empathically, explore patient's gnosticism beliefs and provide pastoral breastfeeding peer counselor and prayer. Patient responds well and shows signs of redoced stress. I will continue to remain available to patient and family.
--- NOTE | 2019-12-31 18:18 | NUR ---
SHIFT SUMMARY MEDICATED X2 THIS SHIFT. NG TUBE IN PLACE AT LOW INTERMITTENT SUCTION. PT HAS PUT OUT A LARGE AMOUNT-OVER 800 ML. IVF INFUSING WITHOUT DIFFICULTY. DR. FRAZIER IN TO SEE PT THIS EVENING. NO ORDERS AT THIS TIME. CALL LIGHT IN REACH. WILL CONTINUE TO MONITOR AND REPORT TO ONCOMING RN.
[2020-01-01 04:56] LABS: BASOPHILS ABSOLUTE AUTO 0.02 K/mm3 (0.00-0.23); BASOPHILS PERCENT AUTO 0 % (0-2); EOSINOPHILS ABSOLUTE AUTO 0.15 K/mm3 (0.00-0.68); EOSINOPHILS PERCENT AUTO 2 % (0-6); Hematocrit 41.6 % (33.0-51.0); Hemoglobin 13.3 g/dL (11.5-16.0); IMMATURE GRAN ABSOLUTE AUTO 0.02 K/mm3 (0.00-0.10); IMMATURE GRAN PERCENT AUTO 0 % (0-1); LYMPHOCYTES ABSOLUTE AUTO 2.41 K/mm3 (0.84-5.20); LYMPHOCYTES PERCENT AUTO 30 % (21-46); MONOCYTES ABSOLUTE AUTO 0.86 K/mm3 (0.16-1.47); MONOCYTES PERCENT AUTO 11 % (4-13); Mean Corpuscular HGB 29.6 pg (26.0-34.0); Mean Corpuscular Volume 92 fL (80-100); Mean Platelet Volume 8.5 fL (9.1-12.4); NEUTROPHILS ABSOLUTE AUTO 4.64 K/mm3 (1.96-9.15); NEUTROPHILS PERCENT AUTO 57 % (41-73); Platelet Count 377 K/mm3 (150-400); RDW Coefficient Variation 14.6 % (11.7-14.2); RDW Standard Deviation 50.2 fL (35.1-46.3)
[2020-01-01 05:19] LABS: Alanine Aminotransfer (ALT/SGP 15 U/L (12-78); Albumin, Blood 3.4 g/dL (3.4-5.0); Albumin/Globulin Ratio 1.1 (0.8-1.8); Alk Phos 81 U/L (50-136); Anion Gap 1 mmol/L (6-16); Aspartate Aminotrans (AST/SGOT 14 U/L (12-37); Bilirubin, Total 0.3 mg/dL (0.1-1.0); Blood Urea Nitrogen 9 mg/dL (8-24); Bun/Creatinine Ratio 10.5 (12.0-20.0); CO2, Blood 37 mmol/L (21-32); Calcium, Blood 9.1 mg/dL (8.5-10.1); Chloride, Blood 105 mmol/L (98-108); Creatinine, Blood 0.86 mg/dL (0.40-1.00); Globulin, Blood 3.2 g/dL (2.2-4.0); Glomerular Filtration Rate >60 (60-); Glucose, Blood 132 mg/dL (70-99); Potassium, Blood 3.6 mmol/L (3.5-5.5); Sodium, Blood 143 mmol/L (136-145); Total Protein, Blood 6.6 g/dL (6.4-8.2)
--- NOTE | 2020-01-01 05:45 | NUR ---
SHIFT SUMMARY PT CONTINUED TO HAVE ABD PAIN, 12/12. MEDICATED W/ IV DILAUDID 1 MG X 3 THIS EVENING WITH GOOD EFFECT. NG TUBE IN PLACE, HOOKED UP TO LOW INTERMITTENT SUCTION. 950 MLS OF BROWN OUTPUT. PT DID HAVE ONE EPISODE OF NAUSEA WITHOUT ANY VOMITING. MEDICATED X 1 W/ 4 MG ZOFRAN. NO BOWEL MOVEMENTS OR GAS REPORTED BY PT THIS SHIFT. PT DID EXPRESS CONCERN ABOUT NOT TAKING HOME MEDICATIONS, SPECIFICALLY HER ANTIDEPRESSANT. WILL PASS ON TO DAY RN TO SPEAK WITH MD ABOUT. OTHERWISE, NO ACUTE CHANGES THIS EVENING. VITAL SIGNS STABLE. WILL CONTINUE TO MONITOR AND REPORT TO DAY RN.
--- NOTE | 2020-01-01 15:35 | NUR ---
TRANSFER PT STILL IN SURGERY. THIS RN GAVE REPORT TO LUIS CARLOS KIRK WHO WILL ASSUME CARE WHEN PT TRANSFERRED TO ROOM 233 POST OP. PT'S BELONGINGS WILL BE TAKEN TO ROOM 233.
--- NOTE | 2020-01-01 17:28 | NUR ---
pt arrived to room 233 from pacu s/p exp lap lysis of adhesions pt has a midline with small amt of sang drainage to the lower alban dressing quarter sized pt reports abd pain 6/10 stated her breathing is ok coarse t/o pt oriented to room ngt hooked to int low sx scant green liquid
[2020-01-02 05:17] LABS: BASOPHILS ABSOLUTE AUTO 0.05 K/mm3 (0.00-0.23); BASOPHILS PERCENT AUTO 0 % (0-2); EOSINOPHILS ABSOLUTE AUTO 0.04 K/mm3 (0.00-0.68); EOSINOPHILS PERCENT AUTO 0 % (0-6); Hematocrit 36.8 % (33.0-51.0); Hemoglobin 11.8 g/dL (11.5-16.0); IMMATURE GRAN ABSOLUTE AUTO 0.03 K/mm3 (0.00-0.10); IMMATURE GRAN PERCENT AUTO 0 % (0-1); LYMPHOCYTES ABSOLUTE AUTO 1.07 K/mm3 (0.84-5.20); LYMPHOCYTES PERCENT AUTO 9 % (21-46); MONOCYTES PERCENT AUTO 12 % (4-13); Mean Corpuscular HGB 29.6 pg (26.0-34.0); Mean Corpuscular HGB Conc 32.1 g/dL (31.5-36.5); Mean Corpuscular Volume 93 fL (80-100); Mean Platelet Volume 9.1 fL (9.1-12.4); NEUTROPHILS ABSOLUTE AUTO 9.46 K/mm3 (1.96-9.15); NEUTROPHILS PERCENT AUTO 79 % (41-73); Platelet Count 352 K/mm3 (150-400); RDW Coefficient Variation 14.6 % (11.7-14.2); RDW Standard Deviation 49.8 fL (35.1-46.3); Red Blood Cell Count 3.98 M/mm3 (3.80-5.20); White Blood Cell Count 12.05 K/mm3 (4.00-11.30)
--- NOTE | 2020-01-02 05:44 | NUR ---
POD 1 S/P EXP LAP/ALLEN. PT VSS T/O NIGHT. SATS >90% ON 2LO2 NC. LUNGS COARSE, COUGH NON PROD. PT DECLINED NEED FOR RT TX. PT EDUCATED ON I/S USE. ESSENCE DRESSING INTACT W/SMALL AMT SS DRNG NOTED. PAIN MGD W/0.5MG IV DILAUDID. PT NPO X FEW ICE CHIPS, BT SPARSE. PT HAD NO C/O N/V, REP NO FLATUS YET. NO SIG DRNG NOTED FROM NGT. PT ASSISTED W/REPOSITIONING PRN. WILL CONT TO MONITOR UNTIL REP GIVEN TO ONCOMING RN.
[2020-01-02 05:47] LABS: Alanine Aminotransfer (ALT/SGP 20 U/L (12-78); Albumin, Blood 2.8 g/dL (3.4-5.0); Alk Phos 72 U/L (50-136); Anion Gap 2 mmol/L (6-16); Aspartate Aminotrans (AST/SGOT 12 U/L (12-37); Bilirubin, Total 0.4 mg/dL (0.1-1.0); Blood Urea Nitrogen 13 mg/dL (8-24); Bun/Creatinine Ratio 16.1 (12.0-20.0); CO2, Blood 33 mmol/L (21-32); Calcium, Blood 8.8 mg/dL (8.5-10.1); Chloride, Blood 106 mmol/L (98-108); Creatinine, Blood 0.81 mg/dL (0.40-1.00); Globulin, Blood 2.9 g/dL (2.2-4.0); Glomerular Filtration Rate >60 (60-); Glucose, Blood 109 mg/dL (70-99); Potassium, Blood 4.1 mmol/L (3.5-5.5); Sodium, Blood 141 mmol/L (136-145); Total Protein, Blood 5.7 g/dL (6.4-8.2)
--- NOTE | 2020-01-02 18:18 | NUR ---
SHIFT SUMMARY PT A7OX4, VSS, POD1 EXP LAP ALLEN, NG TUBE - LOW OUTPUT. PAIN MANAGED WITH ENVIRONMENTAL PROTECTION GEOLOGIST FENT. LADI PO ICE CHIPS. VASQUES PATENT & DRAINING. 2LNC. REPOSITIONS SELF WELL. WILL REPORT TO ONCOMING NOC RN.
[2020-01-03 04:40] LABS: BASOPHILS ABSOLUTE AUTO 0.03 K/mm3 (0.00-0.23); BASOPHILS PERCENT AUTO 0 % (0-2); EOSINOPHILS PERCENT AUTO 3 % (0-6); Hematocrit 37.8 % (33.0-51.0); Hemoglobin 12.3 g/dL (11.5-16.0); IMMATURE GRAN ABSOLUTE AUTO 0.03 K/mm3 (0.00-0.10); IMMATURE GRAN PERCENT AUTO 0 % (0-1); LYMPHOCYTES ABSOLUTE AUTO 1.23 K/mm3 (0.84-5.20); LYMPHOCYTES PERCENT AUTO 10 % (21-46); MONOCYTES ABSOLUTE AUTO 1.23 K/mm3 (0.16-1.47); MONOCYTES PERCENT AUTO 10 % (4-13); Mean Corpuscular HGB 30.4 pg (26.0-34.0); Mean Corpuscular HGB Conc 32.5 g/dL (31.5-36.5); Mean Corpuscular Volume 93 fL (80-100); Mean Platelet Volume 8.5 fL (9.1-12.4); NEUTROPHILS ABSOLUTE AUTO 9.93 K/mm3 (1.96-9.15); NEUTROPHILS PERCENT AUTO 77 % (41-73); Platelet Count 308 K/mm3 (150-400); RDW Coefficient Variation 14.4 % (11.7-14.2); RDW Standard Deviation 49.6 fL (35.1-46.3); Red Blood Cell Count 4.05 M/mm3 (3.80-5.20); White Blood Cell Count 12.85 K/mm3 (4.00-11.30)
[2020-01-03 04:59] LABS: Alanine Aminotransfer (ALT/SGP 12 U/L (12-78); Albumin, Blood 2.7 g/dL (3.4-5.0); Albumin/Globulin Ratio 0.8 (0.8-1.8); Alk Phos 82 U/L (50-136); Anion Gap 3 mmol/L (6-16); Aspartate Aminotrans (AST/SGOT 14 U/L (12-37); Bilirubin, Total 0.5 mg/dL (0.1-1.0); Blood Urea Nitrogen 9 mg/dL (8-24); Bun/Creatinine Ratio 12.1 (12.0-20.0); CO2, Blood 32 mmol/L (21-32); Calcium, Blood 8.7 mg/dL (8.5-10.1); Chloride, Blood 103 mmol/L (98-108); Creatinine, Blood 0.75 mg/dL (0.40-1.00); Globulin, Blood 3.3 g/dL (2.2-4.0); Glomerular Filtration Rate >60 (60-); Glucose, Blood 122 mg/dL (70-99); Sodium, Blood 138 mmol/L (136-145)
--- NOTE | 2020-01-03 07:00 | NUR ---
PT REPORTING INC PAIN TO HER STOMACH STATED IT'S FROM THE NGT REQ I PULL IT WILL ASK DR FRAZIER IF WE CAN D/C IT AND WILL TRY TO REPOSITION A FEW CM PT HAS DK BROWN LIQUID IN TUBING
--- NOTE | 2020-01-03 07:27 | NUR ---
FENT 25 MCG GIVEN FOR INC PAIN ADJUSTED NGT STILL DRAINING ASKED PT IF IT HELPED STATED YES BUT PAIN WAS COMING BACK STILL HYPO BT'S NO FLATUS
--- NOTE | 2020-01-03 07:44 | NUR ---
POD 2 S/P EXP LAP W/ALLEN. PT VSS T/O NIGHT, 2LO2 NC IN PLACE. PT DENIED SOB, I/S USE REINFORCED. SEAL AND SX TO ESSENCE DRESSING INTACT W/NO SIG INC IN DRNG. APPX 400ML BROWN DRNG FROM NGT. PT C/O INC ABD PRESSURE THIS AM, NGT FLUSHED, PT REP INC PRESSURE DURING FLUSH, UNABLE TO PULL BACK FROM NGT. SX STOPPED BRIEFLY THIS AM TO ATTEMPT RELEASE. PT HAD NO C/O N/V, DID REP INC PRESSURE THIS AM, BT REMAIN HYPO. PAIN MGD W/SHEARING MACHINE FEEDER W/REP RELIEF FOR MAJORITY OF NIGHT; DID C/O INC DISCOMFORT THIS AM R/T NGT. BEDSIDE REPORT GIVEN TO DAY RN, DAY RN TO NOTIFY SURGEON IF NO IMPROVEMENT IN NGT.
--- NOTE | 2020-01-03 08:50 | NUR ---
dr arnett by to see pt removed ngt per pt req earlier stated pain is gone r/t it no nausea removed [email or web address]
--- NOTE | 2020-01-03 12:40 | NUR ---
PT REQ PAIN MEDS STATED INC PAIN R/T COUGHING FENT 25MCG GIVEN EARLIER CALLED RT REQ PT USE A FLUTTER AND TCDB WILL ASK DR FRAZIER FOR A ORDER
--- NOTE | 2020-01-03 13:21 | NUR ---
Patient is sitting up in bed and alert. We talk about all that patient is going through medically and how that is affecting her and her family. We talk about the attitudes that are helpful and about what her family needs. We talk about prayer and meditation and connecting to God in meaningful and personal ways. I listen empathically and provide spiritual guidance and prayer. I will continue to remain available to patient and family.
--- NOTE | 2020-01-03 17:55 | NUR ---
pt lv small amts of ice chips during the day no nausea
[2020-01-04 04:47] LABS: BASOPHILS ABSOLUTE AUTO 0.03 K/mm3 (0.00-0.23); BASOPHILS PERCENT AUTO 0 % (0-2); EOSINOPHILS ABSOLUTE AUTO 0.26 K/mm3 (0.00-0.68); EOSINOPHILS PERCENT AUTO 2 % (0-6); Hematocrit 38.7 % (33.0-51.0); Hemoglobin 12.6 g/dL (11.5-16.0); IMMATURE GRAN ABSOLUTE AUTO 0.04 K/mm3 (0.00-0.10); IMMATURE GRAN PERCENT AUTO 0 % (0-1); LYMPHOCYTES ABSOLUTE AUTO 1.16 K/mm3 (0.84-5.20); LYMPHOCYTES PERCENT AUTO 9 % (21-46); MONOCYTES ABSOLUTE AUTO 1.26 K/mm3 (0.16-1.47); MONOCYTES PERCENT AUTO 9 % (4-13); Mean Corpuscular HGB 30.1 pg (26.0-34.0); Mean Corpuscular HGB Conc 32.6 g/dL (31.5-36.5); Mean Corpuscular Volume 92 fL (80-100); Mean Platelet Volume 9.4 fL (9.1-12.4); NEUTROPHILS ABSOLUTE AUTO 10.74 K/mm3 (1.96-9.15); NEUTROPHILS PERCENT AUTO 80 % (41-73); Platelet Count 327 K/mm3 (150-400); RDW Standard Deviation 47.7 fL (35.1-46.3); Red Blood Cell Count 4.19 M/mm3 (3.80-5.20); White Blood Cell Count 13.49 K/mm3 (4.00-11.30)
[2020-01-04 05:15] LABS: Alanine Aminotransfer (ALT/SGP 11 U/L (12-78); Albumin, Blood 2.8 g/dL (3.4-5.0); Albumin/Globulin Ratio 0.8 (0.8-1.8); Alk Phos 86 U/L (50-136); Anion Gap 6 mmol/L (6-16); Aspartate Aminotrans (AST/SGOT 11 U/L (12-37); Bilirubin, Total 0.7 mg/dL (0.1-1.0); Blood Urea Nitrogen 7 mg/dL (8-24); Bun/Creatinine Ratio 10.9 (12.0-20.0); CO2, Blood 27 mmol/L (21-32); Calcium, Blood 8.8 mg/dL (8.5-10.1); Chloride, Blood 104 mmol/L (98-108); Creatinine, Blood 0.64 mg/dL (0.40-1.00); Globulin, Blood 3.6 g/dL (2.2-4.0); Glomerular Filtration Rate >60 (60-); Glucose, Blood 131 mg/dL (70-99); Potassium, Blood 3.7 mmol/L (3.5-5.5); Sodium, Blood 137 mmol/L (136-145); Total Protein, Blood 6.4 g/dL (6.4-8.2)
--- NOTE | 2020-01-04 06:23 | NUR ---
SHIFT SUMMARY: PRO IS A&OX4, ALERT AND INDEPENDENT IN THE ROOM. SHE REPORTS THAT THE LINING CUTTER IS PROVIDING ADEQUATE PAIN CONTROL. SHE AMBULATES TO THE BATHROOM INDEPENDENTLY. LOW GRADE FEVER THIS AM. MIDLINE INCISION WITH ESSENCE INTACT. SHE IS LYING IN BED WITH HER CALL LIGHT IN REACH, WILL REPORT TO DAY SHIFT RN.
--- NOTE | 2020-01-04 12:49 | NUR ---
DR CHAN HERE TO SEE PT, ORDERED A SBFT BUT RADIOLOGIST NOT AVAIL TODAY PER IMAGING, AND THAT IT MOST LIKELY WOULD BE MONDAY BEFORE THEY WERE IN HOUSE. DR CHAN STILL ON SURGICAL FLOOR, UPDATED ON THIS, REPORTS TO CANCEL SBFT.
[2020-01-05 03:57] LABS: BASOPHILS ABSOLUTE AUTO 0.03 K/mm3 (0.00-0.23); BASOPHILS PERCENT AUTO 0 % (0-2); EOSINOPHILS ABSOLUTE AUTO 0.29 K/mm3 (0.00-0.68); EOSINOPHILS PERCENT AUTO 3 % (0-6); Hematocrit 33.8 % (33.0-51.0); Hemoglobin 10.8 g/dL (11.5-16.0); IMMATURE GRAN ABSOLUTE AUTO 0.03 K/mm3 (0.00-0.10); IMMATURE GRAN PERCENT AUTO 0 % (0-1); LYMPHOCYTES ABSOLUTE AUTO 1.03 K/mm3 (0.84-5.20); LYMPHOCYTES PERCENT AUTO 10 % (21-46); MONOCYTES ABSOLUTE AUTO 1.18 K/mm3 (0.16-1.47); MONOCYTES PERCENT AUTO 12 % (4-13); Mean Corpuscular HGB 30.3 pg (26.0-34.0); Mean Corpuscular Volume 95 fL (80-100); Mean Platelet Volume 8.8 fL (9.1-12.4); NEUTROPHILS ABSOLUTE AUTO 7.39 K/mm3 (1.96-9.15); NEUTROPHILS PERCENT AUTO 74 % (41-73); Platelet Count 289 K/mm3 (150-400); RDW Standard Deviation 48.7 fL (35.1-46.3); Red Blood Cell Count 3.57 M/mm3 (3.80-5.20); White Blood Cell Count 9.95 K/mm3 (4.00-11.30)
--- NOTE | 2020-01-05 04:11 | NUR ---
SHIFT SUMMARY: PRO IS A&OX4, INDEPENDENT TO THE BATHROOM, AND TOLERATING ICE CHIPS WELL. SHE HAS RESTED INTERMITTENTLY THIS SHIFT. SHE REPORTS THAT THE DIRECT CARE COUNSELOR IS PROVIDING ADEQUATE PAIN CONTROL. SHE DENIES PASSING FLATUS OR BM YET, BOWEL TONES POSITIVE. VSS, NO ACUTE EVENTS OVERNIGHT. SHE IS LYING IN BED WITH HER CALL LIGHT IN REACH. WILL REPORT TO DAY SHIFT RN.
[2020-01-05 04:30] LABS: Alanine Aminotransfer (ALT/SGP 9 U/L (12-78); Albumin, Blood 2.3 g/dL (3.4-5.0); Albumin/Globulin Ratio 0.7 (0.8-1.8); Alk Phos 80 U/L (50-136); Anion Gap 4 mmol/L (6-16); Aspartate Aminotrans (AST/SGOT 11 U/L (12-37); Bilirubin, Total 0.5 mg/dL (0.1-1.0); Blood Urea Nitrogen 8 mg/dL (8-24); Bun/Creatinine Ratio 12.6 (12.0-20.0); CO2, Blood 27 mmol/L (21-32); Calcium, Blood 8.3 mg/dL (8.5-10.1); Chloride, Blood 106 mmol/L (98-108); Creatinine, Blood 0.64 mg/dL (0.40-1.00); Globulin, Blood 3.4 g/dL (2.2-4.0); Glomerular Filtration Rate >60 (60-); Glucose, Blood 135 mg/dL (70-99); Potassium, Blood 3.9 mmol/L (3.5-5.5); Sodium, Blood 137 mmol/L (136-145); Total Protein, Blood 5.7 g/dL (6.4-8.2)
--- NOTE | 2020-01-05 12:47 | NUR ---
BONDS TO SEE PT RECENTLY. PT REPORTED PASSING GAS, DR AWARE.
--- NOTE | 2020-01-05 15:57 | NUR ---
SHIFT SUMMARY PT CONT TO BE NPO. PT UP IND WITH STEADY GAIT. PT VOIDING. PT REPORTS PASSING GAS TODAY. DR CHAN AWARE. PT BEEN ASSISTED WITH ADL'S PRN. PT USING CALL LIGHT APPR. IP TECHNOLOGY TRANSACTIONS ATTORNEY CONT TO BE WORKING FOR PT'S PAIN.
--- NOTE | 2020-01-06 05:03 | NUR ---
SHIFT SUMMARY: ALBERT HAS RESTED COMFORTABLY DURING THE SHIFT. SHE REPORTS FEELING WELL, BUT IS RUNNING A LOW GRADE FEVER. SHE DESATURATED DURING THE NIGHT TO 81% ORA, RECOVERED TO 88% W 2LNC. SHE IS INDEPENDENT TO THE BATHROOM, REPORTS PASSING FLATUS BUT NO BM YET. TOLERATING SIPS AND CHIPS WELL. SHE WAS ENCOURAGED TO USE THE IS AND FLUTTER VALVE. SHE IS LYING IN BED WITH HER CALL LIGHT IN REACH. WILL REPORT TO DAY SHIFT RN.
[2020-01-06 05:05] LABS: BASOPHILS ABSOLUTE AUTO 0.05 K/mm3 (0.00-0.23); BASOPHILS PERCENT AUTO 0 % (0-2); EOSINOPHILS ABSOLUTE AUTO 0.13 K/mm3 (0.00-0.68); EOSINOPHILS PERCENT AUTO 1 % (0-6); Hematocrit 33.1 % (33.0-51.0); Hemoglobin 10.6 g/dL (11.5-16.0); IMMATURE GRAN ABSOLUTE AUTO 0.05 K/mm3 (0.00-0.10); IMMATURE GRAN PERCENT AUTO 0 % (0-1); LYMPHOCYTES ABSOLUTE AUTO 0.56 K/mm3 (0.84-5.20); LYMPHOCYTES PERCENT AUTO 4 % (21-46); MONOCYTES ABSOLUTE AUTO 1.79 K/mm3 (0.16-1.47); MONOCYTES PERCENT AUTO 14 % (4-13); Mean Corpuscular HGB 29.9 pg (26.0-34.0); Mean Corpuscular Volume 94 fL (80-100); Mean Platelet Volume 8.7 fL (9.1-12.4); NEUTROPHILS ABSOLUTE AUTO 10.51 K/mm3 (1.96-9.15); NEUTROPHILS PERCENT AUTO 80 % (41-73); Platelet Count 297 K/mm3 (150-400); RDW Coefficient Variation 13.8 % (11.7-14.2); RDW Standard Deviation 47.7 fL (35.1-46.3); Red Blood Cell Count 3.54 M/mm3 (3.80-5.20); White Blood Cell Count 13.09 K/mm3 (4.00-11.30)
[2020-01-06 05:12] LABS: Alanine Aminotransfer (ALT/SGP 11 U/L (12-78); Albumin, Blood 2.2 g/dL (3.4-5.0); Albumin/Globulin Ratio 0.6 (0.8-1.8); Alk Phos 81 U/L (50-136); Anion Gap 5 mmol/L (6-16); Aspartate Aminotrans (AST/SGOT 15 U/L (12-37); Bilirubin, Total 0.9 mg/dL (0.1-1.0); Blood Urea Nitrogen 8 mg/dL (8-24); Bun/Creatinine Ratio 12.6 (12.0-20.0); CO2, Blood 27 mmol/L (21-32); Calcium, Blood 8.4 mg/dL (8.5-10.1); Chloride, Blood 103 mmol/L (98-108); Creatinine, Blood 0.63 mg/dL (0.40-1.00); Globulin, Blood 3.6 g/dL (2.2-4.0); Glomerular Filtration Rate >60 (60-); Glucose, Blood 152 mg/dL (70-99); Potassium, Blood 4.1 mmol/L (3.5-5.5); Sodium, Blood 135 mmol/L (136-145); Total Protein, Blood 5.8 g/dL (6.4-8.2)
[2020-01-06 17:07] LABS: Source, Urine Clean Catch
[2020-01-06 17:11] LABS: Bilirubin, Urine Neg (Neg); Blood, Urine 2+ (Neg); Glucose Qualitative, Urine Neg (Neg); Ketones, Urine Neg (Neg); Leukocyte Esterase, Urine 3+ (Neg); Nitrite, Urine Neg (Neg); Protein, Urine Neg (Neg); Urobilinogen, Urine NORM (Normal); pH, Urine 6.5 (5.0-8.0)
[2020-01-06 17:17] LABS: Appearance, Urine Hazy (Clear); Color, Urine Yellow (P-Yellow)
[2020-01-06 17:19] LABS: Bacteria Mod /hpf; Red Blood Cells, Urine 0-2 /hpf (0-2); Squamous Epithelial Cells Few /hpf (Few)
--- NOTE | 2020-01-06 17:59 | NUR ---
PT HAS BEEN STABLE THIS SHIFT. PT HAS HAD SOME LOW GRADE FEVERS PERIODICALLY. UA SENT PER ORDERS. PT USING SPIROMETRY AND FLUTTER REGULARLY WITH ENCOURAGEMENT. LS COARSE. MOIST NON PRODUCTIVE COUGH. REMAINS ON 2L O2. PT LADI CLEARS. PASSING FLATUS BUT NO BM YET POST OP. WORKED WELL WITH STAFF TO AMBULATE AND SIT IN CHAIR. ENCOURAGED 3 WALKS PER DAY. RETAIL SALES ADVISOR DC'D. PT PAIN CONTROLLED WITH NORCO AND FENTANYL PUSH. ESSENCE MIDLINE CDI. PT VOIDING WELL. DAILY WT COMPLETED. USES CALL LIGHT APPROPRIATELY NEEDED.
--- NOTE | 2020-01-07 06:21 | NUR ---
POD 5 S/P EXP LAP W/ALLEN. PT REMAINED AFEBRILE, SATS >90% ON 2LO2 NC, DID DROP TO LOW 80'S ON RA. OTHER VSS. I/S USE ENCOURAGED, PT VERBALIZED UNDERSTANDING VUT DID NOT DEMONSTRATE THIS SHIFT. DRESSING INTACT, NO NEW DRNG NOTED. PT LADI CL PO, NO N/V, REP +FLATUS. PT IS VOIDING URINE W/O DIFFICULTY; DENIES PAIN W/VOID. NEW ABX ORDER REC. PT UP INDEP IN ROOM, LADI WELL. PAIN MGD W/2 NORCO W/REP RELIEF. IVF CONT PER ORDERS. WILL CONT TO MONITOR UNTIL REP GIVEN TO ONCOMING RN.
--- NOTE | 2020-01-07 17:00 | NUR ---
SHIFT SUMMARY PT WAS MORE ALERT AND UPBEAT THIS MORNING AFTER HER SHOWER BUT SLEEPY IN AFTERNOON. UP IN ROOM AND DANGLES FOR MEALS BUT DECLINES AMBULATING IN HALLWAYS. DENIES NAUSEA, BUT ONLY TAKING SIPS OF CLEAR LQ'S. JUST STATES NOT INTERESTED IN CLEAR LQ'S. PASSING GAS. NO BM.
[2020-01-08 05:08] LABS: BASOPHILS ABSOLUTE AUTO 0.03 K/mm3 (0.00-0.23); BASOPHILS PERCENT AUTO 0 % (0-2); EOSINOPHILS PERCENT AUTO 5 % (0-6); Hematocrit 30.8 % (33.0-51.0); Hemoglobin 9.6 g/dL (11.5-16.0); IMMATURE GRAN ABSOLUTE AUTO 0.03 K/mm3 (0.00-0.10); IMMATURE GRAN PERCENT AUTO 0 % (0-1); LYMPHOCYTES ABSOLUTE AUTO 1.23 K/mm3 (0.84-5.20); LYMPHOCYTES PERCENT AUTO 15 % (21-46); MONOCYTES ABSOLUTE AUTO 0.83 K/mm3 (0.16-1.47); MONOCYTES PERCENT AUTO 10 % (4-13); Mean Corpuscular HGB 29.4 pg (26.0-34.0); Mean Corpuscular HGB Conc 31.2 g/dL (31.5-36.5); Mean Corpuscular Volume 95 fL (80-100); Mean Platelet Volume 8.7 fL (9.1-12.4); NEUTROPHILS ABSOLUTE AUTO 5.46 K/mm3 (1.96-9.15); NEUTROPHILS PERCENT AUTO 68 % (41-73); Platelet Count 351 K/mm3 (150-400); RDW Coefficient Variation 13.9 % (11.7-14.2); RDW Standard Deviation 48.2 fL (35.1-46.3); Red Blood Cell Count 3.26 M/mm3 (3.80-5.20); White Blood Cell Count 7.98 K/mm3 (4.00-11.30)
[2020-01-08 05:28] LABS: Alanine Aminotransfer (ALT/SGP 31 U/L (12-78); Albumin/Globulin Ratio 0.6 (0.8-1.8); Alk Phos 134 U/L (50-136); Anion Gap 3 mmol/L (6-16); Aspartate Aminotrans (AST/SGOT 51 U/L (12-37); Bilirubin, Total 0.4 mg/dL (0.1-1.0); Blood Urea Nitrogen 6 mg/dL (8-24); Bun/Creatinine Ratio 8.6 (12.0-20.0); CO2, Blood 29 mmol/L (21-32); Calcium, Blood 8.4 mg/dL (8.5-10.1); Chloride, Blood 111 mmol/L (98-108); Globulin, Blood 3.3 g/dL (2.2-4.0); Glomerular Filtration Rate >60 (60-); Glucose, Blood 119 mg/dL (70-99); Potassium, Blood 3.9 mmol/L (3.5-5.5); Sodium, Blood 143 mmol/L (136-145); Total Protein, Blood 5.3 g/dL (6.4-8.2)
--- NOTE | 2020-01-08 06:37 | NUR ---
POD 6 S/P EXP LAP +ALLEN. PT VSS, SATS >93% ON RA WHILE SLEEPING. LUNGS LESS COARSE, PT REP PROD COUGH. INCISION MONTRELL, NO DRNG NOTED. PAIN MGD W/PO AND IV PAIN MEDS. PT LADI CL PO, STILL REP DECREASED APPETITE, IS PASSING FLATUS, DID HAVE A SMEAR BM. PT REPORTS HAVING SLEPT WELL DURING NIGHT. PT UP INDEP IN ROOM, DID NOT AMB OUTSIDE OF ROOM THIS SHIFT.
--- NOTE | 2020-01-08 16:38 | NUR ---
SHOFT SUMMARY PT ONLY MEDICATED FOR PAIN x 1. PREFERS IV FENTANYL; DECLINES NORCO. ABD PAIN BETTER BUT DID INCREASE SLIGHTLY POST FULL LQ MEAL. STATES NOT WORSE THAN PRIOR. PASSING GAS. HAD BM THIS AM. PLEASANT AND UPBEAT TODAY.
--- NOTE | 2020-01-09 04:18 | NUR ---
SHIFT SUMMARY: "PRO" HAS RESTED INTERMITTENTLY THIS SHIFT. VSS, NO ACUTE EVENTS OVERNIGHT, ON ROOM AIR. SHE IS INDEPENDENT TO THE BATHROOM, TOLERATING PO INTAKE. SHE DOES REPORT INCREASED ABDOMINAL PAIN AFTER ADVANCING FROM CLEAR TO FULL LIQUIDS TODAY. SHE REPORTS ADEQUATE PAIN RELIEF WITH FENTANYL AND NORCO. IV TO R AC PATENT. SHE USES HER CALL LIGHT APPROPRIATELY. MIDLINE INCISION WITH DORINDA OPEN TO AIR. SHE IS LYING IN BED WITH HER CALL LIGHT IN REACH. WILL REPORT TO DAY SHIFT RN.
--- NOTE | 2020-01-09 16:41 | NUR ---
Shift summary Patient has been ambulating independently today. Patient has one loose bowel movement this afternoon and is passing flatus. Pain controlled with [place]. Patient switched over to PO antibiotics. Patient tolerating full liquid diet. Call light within patient reach.
--- NOTE | 2020-01-10 04:19 | NUR ---
SHIFT SUMMARY: 69 Y/O FEMALE RESTED COMFORTABLY ALL SHIFT; PTS ABD INCISION X 3 WITH DORINDA WELL APPROXIMATED AND OPEN TO AIR; PT LUNG SOUNDS ARE CLEAR THROUGHOUT; ABLE TO COUGH WITH GOOD EFFORT; ALERT AND ORIENTED X 4; PASSING FLATUS; C/O ABD PAIN RATED 6/10 WITH NORCO 5/325 MG X 2 TABLETS GIVEN TWICE WITH RELIEF FELT; BED ALARM APPLIED FOR SAFETY, BED LOW POSITION WITH CALL LIGHT AT SIDE.
[2020-01-10] MEDS ORDERED: Norco 5-325 Ta1 EACH PO (09:22)
[2020-01-10] MEDS ORDERED: MIRALAX17 GM PO (09:22)
--- NOTE | 2020-01-10 10:59 | NUR ---
Discharge summary Patient discharged home. IV out. Discharge instructions given, explained and signed. Prescription for pain medication given to patient. Patient to follow up with surgery within a week for staple removal. Patient denied questions or concerns at discharge. Patient left hospital via wheelchair escort.
== END 2020-01-10 10:15 | disposition home or self-care (01) | DRG 336 ==
LOC: ER 21:20 → MEDS 23:01 → SURS 23:01 → MEDS 23:29 → SURS 01-01 16:39
PROVIDERS: Emergency Medicine; Family Medicine; Internal Medicine; Surgery; ADMIT Internal Medicine
PROC: 0DN80ZZ Release Small Intestine, Open Approach (ICD-10-PCS; 2020-01-01)
PROC: 0DNE0ZZ Release Large Intestine, Open Approach (ICD-10-PCS; principal; 2020-01-01 13:00)
DX: K56.50 Intestinal adhesions [bands], unspecified as to partial versus complete obstruction (principal); N39.0 Urinary tract infection, site not specified; Z90.49 Acquired absence of other specified parts of digestive tract; F17.210 Nicotine dependence, cigarettes, uncomplicated; J44.9 Chronic obstructive pulmonary disease, unspecified; F32.9 Major depressive disorder, single episode, unspecified; G47.00 Insomnia, unspecified
CPT/HCPCS: 36415; 74176; 80048; 80053; 81001; 83690; 85025; 87086; 94640; 94667; 94760; 96361; 96374; 96375; 99285-25; A9270-GY; J0694; J0696; J1100; J1170; J1650; J1885; J2250; J2405; J2704; J2710; J2765; J3010; J7030; J7120; U0002

== ENCOUNTER 2020-11-03 12:29 | Emergency (ER) | payer OTHER ==
[~2020-11-03] VITALS: Ht 152.4 cm; Wt 37.6 kg
[~2020-11-03 12:29] MED LIST changes: +MIRALAX17 GM PO
[2020-11-03 13:22] LABS: BASOPHILS ABSOLUTE AUTO 0.05 K/mm3 (0.00-0.23); BASOPHILS PERCENT AUTO 0 % (0-2); EOSINOPHILS PERCENT AUTO 1 % (0-6); Hematocrit 43.4 % (33.0-51.0); Hemoglobin 14.3 g/dL (11.5-16.0); IMMATURE GRAN ABSOLUTE AUTO 0.02 K/mm3 (0.00-0.10); IMMATURE GRAN PERCENT AUTO 0 % (0-1); LYMPHOCYTES ABSOLUTE AUTO 1.99 K/mm3 (0.84-5.20); LYMPHOCYTES PERCENT AUTO 17 % (21-46); MONOCYTES ABSOLUTE AUTO 0.88 K/mm3 (0.16-1.47); MONOCYTES PERCENT AUTO 8 % (4-13); Mean Corpuscular HGB 30.3 pg (26.0-34.0); Mean Corpuscular HGB Conc 32.9 g/dL (31.5-36.5); Mean Corpuscular Volume 92 fL (80-100); Mean Platelet Volume 9.1 fL (9.1-12.4); NEUTROPHILS ABSOLUTE AUTO 8.69 K/mm3 (1.96-9.15); NEUTROPHILS PERCENT AUTO 74 % (41-73); Platelet Count 276 K/mm3 (150-400); RDW Coefficient Variation 14.5 % (11.7-14.2); RDW Standard Deviation 49.3 fL (35.1-46.3); Red Blood Cell Count 4.72 M/mm3 (3.80-5.20); White Blood Cell Count 11.73 K/mm3 (4.00-11.30)
[2020-11-03 13:42] LABS: Alanine Aminotransfer (ALT/SGP 18 U/L (12-78); Albumin, Blood 3.9 g/dL (3.4-5.0); Albumin/Globulin Ratio 1.2 (0.8-1.8); Alk Phos 92 U/L (50-136); Anion Gap 4 mmol/L (6-16); Aspartate Aminotrans (AST/SGOT 15 U/L (12-37); Bilirubin, Total 0.3 mg/dL (0.1-1.0); Blood Urea Nitrogen 22 mg/dL (8-24); Bun/Creatinine Ratio 26.6 (12.0-20.0); CO2, Blood 26 mmol/L (21-32); Chloride, Blood 107 mmol/L (98-108); Creatinine, Blood 0.83 mg/dL (0.40-1.00); Globulin, Blood 3.3 g/dL (2.2-4.0); Glomerular Filtration Rate >60 (60-); Glucose, Blood 93 mg/dL (70-99); Potassium, Blood 4.3 mmol/L (3.5-5.5); Sodium, Blood 137 mmol/L (136-145); Total Protein, Blood 7.2 g/dL (6.4-8.2)
[2020-11-03] MEDS ORDERED: Zofran8 MG PO (17:43)
== END 2020-11-03 17:55 | disposition home or self-care (01) ==
LOC: ER 12:29
PROVIDERS: Physician Assistant
DX: K52.9 Noninfective gastroenteritis and colitis, unspecified (principal); I25.2 Old myocardial infarction; F17.210 Nicotine dependence, cigarettes, uncomplicated; Z88.8 Allergy status to other drugs, medicaments and biological substances; Z79.899 Other long term (current) drug therapy
CPT/HCPCS: 36415; 74177; 80053; 83690; 85025; 96374-59; 99284-25; A9270; J1885; Q9967

== ENCOUNTER → 2021-10-29 | Outpatient (CLI) | payer OTHER ==
[~2021-10-29] MED LIST changes: +Zofran8 MG PO
[2021-10-29 11:38] LABS: BASOPHILS ABSOLUTE AUTO 0.04 K/mm3 (0.00-0.23); BASOPHILS PERCENT AUTO 1 % (0-2); EOSINOPHILS ABSOLUTE AUTO 0.11 K/mm3 (0.00-0.68); EOSINOPHILS PERCENT AUTO 2 % (0-6); Hemoglobin 14.3 g/dL (11.5-16.0); IMMATURE GRAN ABSOLUTE AUTO 0.02 K/mm3 (0.00-0.10); IMMATURE GRAN PERCENT AUTO 0 % (0-1); LYMPHOCYTES ABSOLUTE AUTO 1.81 K/mm3 (0.84-5.20); LYMPHOCYTES PERCENT AUTO 25 % (21-46); MONOCYTES ABSOLUTE AUTO 0.54 K/mm3 (0.16-1.47); MONOCYTES PERCENT AUTO 8 % (4-13); Mean Corpuscular HGB Conc 33.3 g/dL (31.5-36.5); Mean Corpuscular Volume 93 fL (80-100); Mean Platelet Volume 8.4 fL (9.1-12.4); NEUTROPHILS ABSOLUTE AUTO 4.63 K/mm3 (1.96-9.15); NEUTROPHILS PERCENT AUTO 65 % (41-73); Platelet Count 278 K/mm3 (150-400); RDW Coefficient Variation 14.4 % (11.7-14.2); RDW Standard Deviation 48.9 fL (35.1-46.3); Red Blood Cell Count 4.62 M/mm3 (3.80-5.20); White Blood Cell Count 7.15 K/mm3 (4.00-11.30)
[2021-10-29 11:51] LABS: Albumin, Blood 3.8 g/dL (3.4-5.0); Albumin/Globulin Ratio 1.2 (0.8-1.8); Bilirubin, Total 0.4 mg/dL (0.1-1.0); Bun/Creatinine Ratio 20.5 (12.0-20.0); Calcium, Blood 9.3 mg/dL (8.5-10.1); Creatinine, Blood 0.78 mg/dL (0.40-1.00); Free Thyroxine 0.99 ng/dL (0.70-1.60); Globulin, Blood 3.1 g/dL (2.2-4.0); Thyroid Stimulating Hormone 1.718 uIU/mL (0.360-4.800); Total Protein, Blood 6.9 g/dL (6.4-8.2)
== END | disposition home or self-care (01) ==
LOC: LAB 11:23 → LAB SHORT 11:23
PROVIDERS: General Practice
DX: F41.9 Anxiety disorder, unspecified (principal); R53.81 Other malaise; R68.89 Other general symptoms and signs
CPT/HCPCS: 80053; 84439; 84443; 85025

== ENCOUNTER 2022-05-12 09:12 | Day surgery (SDC) | payer OTHER ==
[~2022-05-12] VITALS: Ht 154.9 cm; Wt 34.2 kg
--- NOTE | 2022-05-12 09:40 | NUR ---
05/12/22 0940 Teri Koenig AT 0931 PLEBRENTET AT 0999
== END 2022-05-12 10:58 | disposition home or self-care (01) ==
LOC: ORSCSDS 09:12
PROVIDERS: Ophthalmology
PROC: 08RJ3JZ Replacement of Right Lens with Synthetic Substitute, Percutaneous Approach (ICD-10-PCS; principal; 2022-05-12 10:30)
DX: H25.11 Age-related nuclear cataract, right eye (principal); I10 Essential (primary) hypertension; I25.10 Atherosclerotic heart disease of native coronary artery without angina pectoris; F17.210 Nicotine dependence, cigarettes, uncomplicated; Z79.899 Other long term (current) drug therapy
CPT/HCPCS: J2001; J2250; J3010; J3301; V2632

== ENCOUNTER 2022-05-19 09:25 | Day surgery (SDC) | payer OTHER ==
[~2022-05-19] VITALS: Ht 154.9 cm; Wt 75.4 kg
[2022-05-19] MEDS ORDERED: HYDACE10B PO (09:54)
== END 2022-05-19 11:15 | disposition home or self-care (01) ==
LOC: ORSCSDS 09:25
PROVIDERS: Ophthalmology
PROC: 08DK3ZZ Extraction of Left Lens, Percutaneous Approach (ICD-10-PCS; principal; 2022-05-19 10:30)
DX: H25.12 Age-related nuclear cataract, left eye (principal); I25.2 Old myocardial infarction; F17.210 Nicotine dependence, cigarettes, uncomplicated; Z79.899 Other long term (current) drug therapy
CPT/HCPCS: J2001; J2250; J3010; J3301; J7040; V2632

== ENCOUNTER 2022-10-22 20:14 | Emergency (ER) | payer OTHER ==
[~2022-10-22] VITALS: Ht 147.3 cm; Wt 43.1 kg
[~2022-10-22 20:14] MED LIST changes: +HYDACE10B PO
[2022-10-23] MEDS ORDERED: PRED20 PO (01:06)
[2022-10-23] MEDS ORDERED: DOXY100 PO (01:06)
[2022-10-23] MEDS ORDERED: HYDR1TAB94 PO (01:06)
[2022-10-23 01:50] VITALS: BP 127/60
== END 2022-10-23 02:00 | disposition home or self-care (01) ==
LOC: ER 20:14
DX: J44.1 Chronic obstructive pulmonary disease with (acute) exacerbation (principal); I25.2 Old myocardial infarction; F17.210 Nicotine dependence, cigarettes, uncomplicated; Z88.8 Allergy status to other drugs, medicaments and biological substances; Z79.899 Other long term (current) drug therapy
CPT/HCPCS: 71045; 93005; 93010; 94644; 94645; 94664; 96374; 96375; 99285-25; A9270; J1885; J2270; J2930

== ENCOUNTER 2022-11-04 05:03 | Inpatient (IN) | payer OTHER ==
[~2022-11-04] VITALS: Ht 154.9 cm; Wt 36.0 kg
[~2022-11-04 05:03] MED LIST changes: +DOXY100 PO; +PRED20 PO
[2022-11-04 05:24] LABS: BASOPHILS ABSOLUTE AUTO 0.09 K/mm3 (0.00-0.23); BASOPHILS PERCENT AUTO 0 % (0-2); EOSINOPHILS ABSOLUTE AUTO 0.18 K/mm3 (0.00-0.68); EOSINOPHILS PERCENT AUTO 1 % (0-6); Hematocrit 45.8 % (33.0-51.0); Hemoglobin 14.9 g/dL (11.5-16.0); IMMATURE GRAN ABSOLUTE AUTO 0.17 K/mm3 (0.00-0.10); IMMATURE GRAN PERCENT AUTO 1 % (0-1); LYMPHOCYTES PERCENT AUTO 8 % (21-46); MONOCYTES ABSOLUTE AUTO 1.51 K/mm3 (0.16-1.47); MONOCYTES PERCENT AUTO 6 % (4-13); Mean Corpuscular HGB 30.7 pg (26.0-34.0); Mean Corpuscular HGB Conc 32.5 g/dL (31.5-36.5); Mean Corpuscular Volume 94 fL (80-100); Mean Platelet Volume 8.6 fL (9.1-12.4); NEUTROPHILS ABSOLUTE AUTO 20.07 K/mm3 (1.96-9.15); NEUTROPHILS PERCENT AUTO 84 % (41-73); Platelet Count 292 K/mm3 (150-400); RDW Coefficient Variation 13.9 % (11.7-14.2); RDW Standard Deviation 48.9 fL (35.1-46.3); Red Blood Cell Count 4.86 M/mm3 (3.80-5.20); White Blood Cell Count 23.82 K/mm3 (4.00-11.30)
[2022-11-04 05:59] LABS: Albumin, Blood 3.6 g/dL (3.4-5.0); Albumin/Globulin Ratio 1.2 (0.8-1.8); Bilirubin, Total 0.3 mg/dL (0.1-1.0); Bun/Creatinine Ratio 30.8 (12.0-20.0); Calcium, Blood 9.9 mg/dL (8.5-10.1); Creatinine, Blood 0.88 mg/dL (0.40-1.00); Globulin, Blood 3.1 g/dL (2.2-4.0); Potassium, Blood 4.6 mmol/L (3.5-5.5); Total Protein, Blood 6.7 g/dL (6.4-8.2)
[2022-11-04 09:07] VITALS: BP 117/56
--- NOTE | 2022-11-04 11:11 | NUR ---
NG PLACED PER DR PIRES
--- NOTE | 2022-11-04 13:53 | NUR ---
"Spiritual Care| Pt. Request Pt. is awake in bed and welcomes my visit. Pt. is pleasant and is able to verbalize her prognosis clearly. Listen with empathy, interest and a calming presence. Pt. displays evidence of trust. Facilitate a life review and consider matters of aung and belief. Bazine with Pt. Pt. verbalizes gratitude for the spiritual care visit."
[2022-11-04 15:39] VITALS: BP 116/61
--- NOTE | 2022-11-04 15:39 | NUR ---
PT HERE 0855. PLEASANT COOP A/O X3, AMBULATED SELF TO BATHROOM. STEADY. H/R REG, NO MURMUR NOTED. NO TELE. LUNGS CLEAR, RESP EASY, UNLABORED ON R.A. BT HYPERACTIVE T/O. GURGLEY. HERE FOR SBO. STATES NO GAS OR BM THIS AM, BUT STATES JUST A SMEER. VOIDS INDEPENDANT TO BATHROOM/ STATES HAS HAD AVG 2 SBO PER YR HISTORY. BED IN LOW POSITION, CALL LITE IN REACH, CALLS APPROP
--- NOTE | 2022-11-04 16:37 | NUR ---
PT PLEASANT TODAY. STATES LAST BM SMEER WAS THIS AM. NO REAL BM. DID OBTAIN DILAUDID AND FENTANYL TO ALTERNATE FOR PAIN CONTROL. STATES THIS HELPING BETTER. FAMILY IN AT VARIOUS TIMES TODAY. PT STATES DR CHAPA IN TO SEE TODAY, IS HOPEFUL FOR JUST LETTING THE NG TUBE AND REST FOR FIX. HOPING FOR NO SURG. WILL WATCH AND SEE. PT NPO EXCEPT OCC MINIMAL ICE CHIPS. WHICH IS SUCTIONED RIGHT OUT. NO OTHER CONCERNS NOTED. PT STATES THIS HAS HAPPENED COUPLE TIMES A YEAR FOR SEVERAL YEARS. BED IN LOW POSITION, CALL LITE IN REACH, CALLS APPROP
[2022-11-04 20:14] VITALS: BP 132/58
[2022-11-05 01:51] VITALS: BP 125/61
[2022-11-05 06:17] LABS: BASOPHILS ABSOLUTE AUTO 0.06 K/mm3 (0.00-0.23); BASOPHILS PERCENT AUTO 0 % (0-2); EOSINOPHILS ABSOLUTE AUTO 0.22 K/mm3 (0.00-0.68); EOSINOPHILS PERCENT AUTO 2 % (0-6); Hematocrit 36.5 % (33.0-51.0); Hemoglobin 11.9 g/dL (11.5-16.0); IMMATURE GRAN ABSOLUTE AUTO 0.05 K/mm3 (0.00-0.10); IMMATURE GRAN PERCENT AUTO 0 % (0-1); LYMPHOCYTES PERCENT AUTO 12 % (21-46); MONOCYTES ABSOLUTE AUTO 1.17 K/mm3 (0.16-1.47); MONOCYTES PERCENT AUTO 8 % (4-13); Mean Corpuscular HGB 30.7 pg (26.0-34.0); Mean Corpuscular HGB Conc 32.6 g/dL (31.5-36.5); Mean Corpuscular Volume 94 fL (80-100); Mean Platelet Volume 8.6 fL (9.1-12.4); NEUTROPHILS ABSOLUTE AUTO 11.23 K/mm3 (1.96-9.15); NEUTROPHILS PERCENT AUTO 78 % (41-73); Platelet Count 237 K/mm3 (150-400); RDW Coefficient Variation 14.1 % (11.7-14.2); Red Blood Cell Count 3.88 M/mm3 (3.80-5.20); White Blood Cell Count 14.43 K/mm3 (4.00-11.30)
[2022-11-05 06:44] LABS: Albumin, Blood 2.9 g/dL (3.4-5.0); Albumin/Globulin Ratio 1.1 (0.8-1.8); Bilirubin, Total 0.7 mg/dL (0.1-1.0); Bun/Creatinine Ratio 27.7 (12.0-20.0); Calcium, Blood 8.4 mg/dL (8.5-10.1); Creatinine, Blood 0.72 mg/dL (0.40-1.00); Globulin, Blood 2.6 g/dL (2.2-4.0); Potassium, Blood 3.9 mmol/L (3.5-5.5); Total Protein, Blood 5.5 g/dL (6.4-8.2)
[2022-11-05 07:30] VITALS: BP 124/65
--- NOTE | 2022-11-05 10:54 | NUR ---
IMAGING: PT TO IMAGING FOR SMALL BOWEL FOLLOW THROUGH. NGT CLAMPED. PT DENIES NAUSEA. WILL CONT TO MONITOR WHEN RETURNS TO ROOM.
[2022-11-05 15:15] VITALS: BP 166/72
--- NOTE | 2022-11-05 18:14 | NUR ---
DISCHARGE: PT DC TO HOME AT THIS TIME. PT HAS BEEN TOLERATING LIQUIDS WITHOUT PAIN OR NAUSEA. CONT TO HAVE DIARRHEA POST IMAGING. IV'S DC'D X2. PT VERBALIZED UNDERSTANDING OF INSTRUCTIONS, FOLLOW UP, MEDICATIONS. PT LEFT VIA WHEELCHAIR TO CAR WITH BELONGINGS.
== END 2022-11-05 17:15 | disposition home or self-care (01) | DRG 389 ==
LOC: ER 05:03 → MEDS 07:40 → ENPENDDIS 11-05 15:43 → MEDS 11-05 17:15
PROVIDERS: Emergency Medicine; Family Medicine; ADMIT Internal Medicine
DX: K56.699 Other intestinal obstruction unspecified as to partial versus complete obstruction (principal); I51.81 Takotsubo syndrome; J44.9 Chronic obstructive pulmonary disease, unspecified; F32.A Depression, unspecified; F17.210 Nicotine dependence, cigarettes, uncomplicated; I25.2 Old myocardial infarction; Z90.710 Acquired absence of both cervix and uterus; Z90.89 Acquired absence of other organs; Z98.51 Tubal ligation status; Z98.890 Other specified postprocedural states; Z96.652 Presence of left artificial knee joint; Z90.49 Acquired absence of other specified parts of digestive tract; Z88.8 Allergy status to other drugs, medicaments and biological substances; Z79.891 Long term (current) use of opiate analgesic; Z79.899 Other long term (current) drug therapy
CPT/HCPCS: 36415; 71045; 74177; 74250; 80053; 83690; 84484; 85025; 93005; 93010; 94640; 94664; 94760; 96361; 96374-59; 96375; 99285-25; A9270; J1170; J2270; J2405; J3010; J7030; Q9967

== ENCOUNTER 2023-04-18 05:21 | Inpatient (IN) | payer OTHER ==
[~2023-04-18] VITALS: Ht 154.9 cm; Wt 39.7 kg
[~2023-04-18 05:21] MED LIST changes: +Prednisone50 MG PO; +Vibramycin100 MG PO
[2023-04-18 05:49] LABS: BASOPHILS ABSOLUTE AUTO 0.13 K/mm3 (0.00-0.23); BASOPHILS PERCENT AUTO 1 % (0-2); EOSINOPHILS ABSOLUTE AUTO 0.05 K/mm3 (0.00-0.68); EOSINOPHILS PERCENT AUTO 0 % (0-6); Hematocrit 45.5 % (33.0-51.0); Hemoglobin 15.2 g/dL (11.5-16.0); IMMATURE GRAN ABSOLUTE AUTO 0.05 K/mm3 (0.00-0.10); IMMATURE GRAN PERCENT AUTO 0 % (0-1); LYMPHOCYTES ABSOLUTE AUTO 0.36 K/mm3 (0.84-5.20); LYMPHOCYTES PERCENT AUTO 2 % (21-46); MONOCYTES ABSOLUTE AUTO 1.96 K/mm3 (0.16-1.47); MONOCYTES PERCENT AUTO 10 % (4-13); Mean Corpuscular HGB 30.8 pg (26.0-34.0); Mean Corpuscular HGB Conc 33.4 g/dL (31.5-36.5); Mean Corpuscular Volume 92 fL (80-100); Mean Platelet Volume 9.1 fL (9.1-12.4); NEUTROPHILS ABSOLUTE AUTO 17.59 K/mm3 (1.96-9.15); NEUTROPHILS PERCENT AUTO 88 % (41-73); Platelet Count 286 K/mm3 (150-400); RDW Coefficient Variation 14.7 % (11.7-14.2); RDW Standard Deviation 50.2 fL (35.1-46.3); Red Blood Cell Count 4.93 M/mm3 (3.80-5.20); White Blood Cell Count 20.14 K/mm3 (4.00-11.30)
[2023-04-18 06:09] LABS: BAND PERCENT MAN 7 % (0-8); BASOPHILS PERCENT MAN 0 % (0-2); EOSINOPHILS PERCENT MAN 0 % (0-6); LYMPHOCYTES PERCENT MAN 1 % (21-46); MONOCYTES ABSOLUTE MAN 2.61 K/mm3 (0.16-1.47); MONOCYTES PERCENT MAN 13 % (4-13); NEUTROPHILS ABSOLUTE MAN 17.32 K/mm3 (1.96-9.15); SEG NEUTROPHILS PERCENT MAN 79 % (41-73); TOTAL CELLS COUNTED 100
[2023-04-18 07:15] LABS: Albumin, Blood 3.2 g/dL (3.4-5.0); Albumin/Globulin Ratio 1.1 (0.8-1.8); Bilirubin, Total 0.4 mg/dL (0.1-1.0); Bun/Creatinine Ratio 39.7 (12.0-20.0); Calcium, Blood 8.9 mg/dL (8.5-10.1); Creatinine, Blood 0.73 mg/dL (0.40-1.00); Globulin, Blood 2.9 g/dL (2.2-4.0); Total Protein, Blood 6.1 g/dL (6.4-8.2)
[2023-04-18 10:36] VITALS: BP 114/54
--- NOTE | 2023-04-18 10:43 | NUR ---
ARRIVAL TO UNIT PT ARRIVED TO UNIT VIA WHEELCHAIR. ABLE TO STAND AND TRANSFER WITH NO WEAKNESS NOTED. SHE REPORTS PAIN IS TOLERABLE AT THIS TIME. DENIES NAUSEA CURRENTLY. ORDERS FOR NGT, PT AGREEABLE TO PLACEMENT. CURRENTLY SITTING UP IN BED RESTING COMFORTABLY. CALL LIGHT IN REACH.
--- NOTE | 2023-04-18 14:35 | NUR ---
PER RADIOLOGY ADVANCED NGT APPROX 6CM. PT TOLERATED WELL.
[2023-04-18 14:38] VITALS: BP 117/56
[2023-04-18] MEDS ORDERED: CALCIUM CARBON500 M1 PO (14:49)
[2023-04-18] MEDS ORDERED: VITAMIN D310 MC4 PO (14:50)
--- NOTE | 2023-04-18 15:58 | NUR ---
Pt. is awake in bed and welcomes my visit. Pt. is pleasant. Facilitate a life review and in the process rapport is established. Listen with interest, empathy, and a calming presence. Considered matters of aung and belief. Pt. displays evidence of engage,emt. awareness, and motiviation. Pt. also verbalizes that she has good family support locally. Prayed with the Pt. Pt.verbalized gratitude for the spiritual care visit and welcomed this straight line edger to return.
--- NOTE | 2023-04-18 16:46 | NUR ---
SHIFT SUMMARY PT AAOX4, NGT TO LIS. MINIMAL DRAINAGE. PT DENIES PAIN OR NAUSEA DURING SHIFT. REPORTS SOME DISCOMFORT TO LEFT JAW. REPORTS SOME HISTORY OF CLENCHING WHEN STRESSED. DENIES FLATUS DURING SHIFT.
[2023-04-18 19:12] VITALS: BP 128/59
[2023-04-18 19:14] VITALS: BP 128/59
[2023-04-18 23:45] VITALS: BP 124/56
--- NOTE | 2023-04-18 23:49 | NUR ---
O2 PLACED PT MAINTAINING SATS 89-90%, PLACED 2L O2 NC.
[2023-04-19 04:41] VITALS: BP 127/56
[2023-04-19 04:51] LABS: BASOPHILS ABSOLUTE AUTO 0.05 K/mm3 (0.00-0.23); BASOPHILS PERCENT AUTO 0 % (0-2); EOSINOPHILS ABSOLUTE AUTO 0.05 K/mm3 (0.00-0.68); EOSINOPHILS PERCENT AUTO 0 % (0-6); Hematocrit 36.4 % (33.0-51.0); Hemoglobin 11.7 g/dL (11.5-16.0); IMMATURE GRAN ABSOLUTE AUTO 0.06 K/mm3 (0.00-0.10); IMMATURE GRAN PERCENT AUTO 0 % (0-1); LYMPHOCYTES ABSOLUTE AUTO 1.63 K/mm3 (0.84-5.20); LYMPHOCYTES PERCENT AUTO 11 % (21-46); MONOCYTES ABSOLUTE AUTO 1.57 K/mm3 (0.16-1.47); MONOCYTES PERCENT AUTO 10 % (4-13); Mean Corpuscular HGB 30.1 pg (26.0-34.0); Mean Corpuscular HGB Conc 32.1 g/dL (31.5-36.5); Mean Corpuscular Volume 94 fL (80-100); Mean Platelet Volume 9.4 fL (9.1-12.4); NEUTROPHILS ABSOLUTE AUTO 12.21 K/mm3 (1.96-9.15); NEUTROPHILS PERCENT AUTO 78 % (41-73); Platelet Count 238 K/mm3 (150-400); RDW Coefficient Variation 14.9 % (11.7-14.2); RDW Standard Deviation 51.4 fL (35.1-46.3); Red Blood Cell Count 3.89 M/mm3 (3.80-5.20); White Blood Cell Count 15.57 K/mm3 (4.00-11.30)
--- NOTE | 2023-04-19 05:07 | NUR ---
SHIFT SUMMARY VSS, TELE READS SR 68. PT SLEPT ON AND OFF T/O THE NIGHT. PT ABLE TO AMBULATE INDEP TO BSC, VOIDING W/O DIFFICULTY. NG TUBE IN PLACE T/O THE NIGHT. DRAINAGE NOTED TO BE CRANBERRY COLOR W/ CHUNKS OF BROWN. PT MEDICATED WITH PAIN MEDS T/O THE NIGHT. IV FLUIDS INFUSING, PT REMAINED NPO. NO ACUTE EVENTS T/O THE NIGHT. PT EXPRESSED CONCERN ABOUT NOT TAKING HER HOME MEDICATIONS REMERON AND TRAZODONE, PLAN TO PASS ONTO NEXT SHIFT. PT EDUCATED ABOUT NG TUBE FUNCTION AND BEING NPO AT THIS TIME.
[2023-04-19 05:33] LABS: Bun/Creatinine Ratio 25.2 (12.0-20.0); Calcium, Blood 8.5 mg/dL (8.5-10.1); Creatinine, Blood 0.83 mg/dL (0.40-1.00)
[2023-04-19 07:45] VITALS: BP 139/49
[2023-04-19 14:45] VITALS: BP 140/61
--- NOTE | 2023-04-19 17:28 | NUR ---
SUMMARY: PT ADMITTED FOR SBO, NON SURGICAL AT THIS TIME. PT IS A/O, VSS. NGT CONTINUES TO LIS, TOTAL OUTPUT THIS SHIFT WAS 450ML OF DARK BLACK/BROWN LIQUID, DR. BELL MADE AWARE. PT WALKED X2 IN HALLS AND ABLE TO PASS SMALL AMT GAS. PAIN MANAGED WITH 50MCG FENTANYAL ABOUT Q3. FLUIDS INFUSING AND PT VOIDING, UP INDEPENDENTLY TO COMMODE. USES CALL LIGHT AND MAKES NEEDS KNOWN, NO ACUTE CONCERNS AT THIS TIME.
[2023-04-19 19:12] VITALS: BP 145/71
[2023-04-20 03:09] VITALS: BP 126/54
--- NOTE | 2023-04-20 04:41 | NUR ---
SHIFT SUMMARY VSS, TELE READS SR 69, PT REMAINS ON 2L VIA NC. PT SLEPT WELL T/O THE NIGHT. MEDICATED FOR PAIN WITH IV FENT. PT REPORTS HER LUQ IS BECOMING SORE, BUT OVERALL SHE THINKS SHE FEELS BETTER. AMBULATING TO [facility] [place], VOIDING W/O DIFFICULTY. DENIES PASSING FLATTUS, NO STOOLS. NO N/V NOTED. NG TUBE REMAINS IN PLACE. OUTPUT APPEARS TO BE THIN, MUCOUS LIKE, FOAMY, AND AND DARK BROWN. MINIMAL OUTPUT COMPARED TO PREVIOUS ASSESSMENT, ABOUT 100 MLS OUT. AWAITING LABS AT THIS TIME. PLAN FOR SBFT TODAY. THE PATIENT IS RESTING, IN NO DISTRESS, CALL LIGHT IN REACH.
[2023-04-20 05:21] LABS: BASOPHILS ABSOLUTE AUTO 0.03 K/mm3 (0.00-0.23); BASOPHILS PERCENT AUTO 0 % (0-2); EOSINOPHILS ABSOLUTE AUTO 0.08 K/mm3 (0.00-0.68); EOSINOPHILS PERCENT AUTO 1 % (0-6); Hematocrit 34.5 % (33.0-51.0); Hemoglobin 11.3 g/dL (11.5-16.0); IMMATURE GRAN ABSOLUTE AUTO 0.08 K/mm3 (0.00-0.10); IMMATURE GRAN PERCENT AUTO 1 % (0-1); LYMPHOCYTES ABSOLUTE AUTO 1.46 K/mm3 (0.84-5.20); LYMPHOCYTES PERCENT AUTO 9 % (21-46); MONOCYTES ABSOLUTE AUTO 1.64 K/mm3 (0.16-1.47); MONOCYTES PERCENT AUTO 11 % (4-13); Mean Corpuscular HGB 30.7 pg (26.0-34.0); Mean Corpuscular HGB Conc 32.8 g/dL (31.5-36.5); Mean Corpuscular Volume 94 fL (80-100); Mean Platelet Volume 8.8 fL (9.1-12.4); NEUTROPHILS ABSOLUTE AUTO 12.28 K/mm3 (1.96-9.15); NEUTROPHILS PERCENT AUTO 79 % (41-73); Platelet Count 198 K/mm3 (150-400); RDW Coefficient Variation 14.6 % (11.7-14.2); RDW Standard Deviation 50.8 fL (35.1-46.3); Red Blood Cell Count 3.68 M/mm3 (3.80-5.20); White Blood Cell Count 15.57 K/mm3 (4.00-11.30)
[2023-04-20 05:37] LABS: Albumin, Blood 2.7 g/dL (3.4-5.0); Albumin/Globulin Ratio 0.9 (0.8-1.8); Bilirubin, Total 0.6 mg/dL (0.1-1.0); Bun/Creatinine Ratio 19.7 (12.0-20.0); Calcium, Blood 8.3 mg/dL (8.5-10.1); Creatinine, Blood 0.66 mg/dL (0.40-1.00); Globulin, Blood 3.1 g/dL (2.2-4.0); Potassium, Blood 3.8 mmol/L (3.5-5.5); Total Protein, Blood 5.8 g/dL (6.4-8.2)
[2023-04-20 07:44] VITALS: BP 132/67
[2023-04-20 14:52] VITALS: BP 148/63
--- NOTE | 2023-04-20 17:56 | NUR ---
SHIFT SUMMARY A/O X4- AMBULATING W/ ASSISTANCE. VITAL SIGNS STABLE. SMALL BOWEL FOLLOW THROUGH THIS AM. SPOKE WITH DR. BELL AT APPROX 1730, HE STATED TO KEEP PATIENT NPO W/ NG TUBE HOOKED TO INT SUCTION DUE TO NAUSEA/VOMITING. ABDOMINAL XRAY ORDERED PER DR. BELL FOR 0600 ON 04/21/2023. PAIN MANAGED W/ IV PAIN MEDICATION, NAUSEA MANAGED W/ IV MEDICATION. PATIENT PASSING FLATUS AND HAS HAD SEVERAL LOOSE BOWEL MOVEMENTS TODAY. CURRENTLY ON 2L OXYGEN VIA NASAL CANULA. WILL REPORT TO ONCOMING RN.
[2023-04-20 19:14] VITALS: BP 144/59
[2023-04-21 04:30] VITALS: BP 151/62
[2023-04-21 05:42] LABS: BASOPHILS ABSOLUTE AUTO 0.04 K/mm3 (0.00-0.23); BASOPHILS PERCENT AUTO 0 % (0-2); EOSINOPHILS PERCENT AUTO 1 % (0-6); Hematocrit 32.8 % (33.0-51.0); Hemoglobin 10.5 g/dL (11.5-16.0); IMMATURE GRAN ABSOLUTE AUTO 0.07 K/mm3 (0.00-0.10); IMMATURE GRAN PERCENT AUTO 1 % (0-1); LYMPHOCYTES ABSOLUTE AUTO 1.32 K/mm3 (0.84-5.20); LYMPHOCYTES PERCENT AUTO 9 % (21-46); MONOCYTES ABSOLUTE AUTO 1.37 K/mm3 (0.16-1.47); MONOCYTES PERCENT AUTO 9 % (4-13); Mean Corpuscular HGB 30.6 pg (26.0-34.0); Mean Corpuscular Volume 96 fL (80-100); NEUTROPHILS ABSOLUTE AUTO 11.69 K/mm3 (1.96-9.15); NEUTROPHILS PERCENT AUTO 80 % (41-73); Platelet Count 223 K/mm3 (150-400); RDW Coefficient Variation 14.8 % (11.7-14.2); Red Blood Cell Count 3.43 M/mm3 (3.80-5.20); White Blood Cell Count 14.59 K/mm3 (4.00-11.30)
--- NOTE | 2023-04-21 05:43 | NUR ---
SHIFT SUMMARY VSS, SR 68. PT SLEPT WELL T/O THE NIGHT. MEDICATED FOR ABD PAIN ONCE, AND BACK PAIN ONCE. PT REPORTS SHE IS FEELING MUCH IMPROVED, BUT THAT HER "GUTS FEEL BRUISED". PT REPORTS SHE IS CRAVING COFFEE. PT AMBULATING TO [facility] [place]DEP, VOIDING W/O DIFFICULTY. PT REPORTS PASSING A SIGNIFIGANT AMOUNT OF FLATTUS. NO ACUTE EVENTS NOTED.
[2023-04-21 06:04] LABS: Bun/Creatinine Ratio 20.1 (12.0-20.0); Calcium, Blood 8.4 mg/dL (8.5-10.1); Creatinine, Blood 0.7 mg/dL (0.40-1.00); Potassium, Blood 3.4 mmol/L (3.5-5.5)
[2023-04-21 07:08] VITALS: BP 147/63
[2023-04-21 14:03] VITALS: BP 140/57
--- NOTE | 2023-04-21 18:24 | NUR ---
SHIFT SUMMARY: PT A&O X4. PLEASANT AND COOPERATIVE WITH ALL CARE. PT STATES SHE FEELS MUCH BETTER THIS SHIFT THAN PREVIOUS. NG REMOVED BY DR. BELL THIS AM. PT TOLERATED CLEAR LIQUID W/O COMPLICATIONS. PT TRANSITIONED TO LOW FIBER DIET OR DINNER AND ALSO TOLERATING WELL. TELE REMOVED PER HOSPITALIST ORDER. FENTANYL D/C AND CHANGED TO PT HOME MED OF NORCO Q6 PRN. PT ABLE TO D/C TOMORROW IF CONTINUING TO TOLERATE FLUIDS/MEALS. NO C/O PAIN THIS SHIFT. CALL LIGHT IN REACH. BED IN LOWEST POSITION.
[2023-04-21 19:35] VITALS: BP 122/63
[2023-04-22 04:16] VITALS: BP 138/70
[2023-04-22 04:56] LABS: BASOPHILS ABSOLUTE AUTO 0.03 K/mm3 (0.00-0.23); BASOPHILS PERCENT AUTO 0 % (0-2); EOSINOPHILS ABSOLUTE AUTO 0.26 K/mm3 (0.00-0.68); EOSINOPHILS PERCENT AUTO 3 % (0-6); Hematocrit 32.3 % (33.0-51.0); Hemoglobin 10.7 g/dL (11.5-16.0); IMMATURE GRAN ABSOLUTE AUTO 0.05 K/mm3 (0.00-0.10); IMMATURE GRAN PERCENT AUTO 1 % (0-1); LYMPHOCYTES ABSOLUTE AUTO 1.88 K/mm3 (0.84-5.20); LYMPHOCYTES PERCENT AUTO 19 % (21-46); MONOCYTES ABSOLUTE AUTO 1.03 K/mm3 (0.16-1.47); MONOCYTES PERCENT AUTO 11 % (4-13); Mean Corpuscular HGB 30.4 pg (26.0-34.0); Mean Corpuscular HGB Conc 33.1 g/dL (31.5-36.5); Mean Corpuscular Volume 92 fL (80-100); NEUTROPHILS ABSOLUTE AUTO 6.57 K/mm3 (1.96-9.15); NEUTROPHILS PERCENT AUTO 67 % (41-73); Platelet Count 221 K/mm3 (150-400); RDW Coefficient Variation 14.6 % (11.7-14.2); RDW Standard Deviation 49.5 fL (35.1-46.3); Red Blood Cell Count 3.52 M/mm3 (3.80-5.20); White Blood Cell Count 9.82 K/mm3 (4.00-11.30)
[2023-04-22 05:41] LABS: Albumin, Blood 2.5 g/dL (3.4-5.0); Anion Gap 4 mmol/L (6-16); Blood Urea Nitrogen 17 mg/dL (8-24); Bun/Creatinine Ratio 21.8 (12.0-20.0); CO2, Blood 30 mmol/L (21-32); Calcium, Blood 8.3 mg/dL (8.5-10.1); Chloride, Blood 111 mmol/L (98-108); Creatinine, Blood 0.78 mg/dL (0.40-1.00); Glomerular Filtration Rate 80 (60-); Glucose, Blood 94 mg/dL (70-99); Magnesium, Blood 1.9 mg/dL (1.6-2.4); Phosphorus, Blood 1.4 mg/dL (2.5-4.9); Potassium, Blood 3.2 mmol/L (3.5-5.5); Sodium, Blood 145 mmol/L (136-145)
--- NOTE | 2023-04-22 05:47 | NUR ---
SHIFT SUMMARY PT IS HERE FOR A SMALL BOWEL OBSTRUCTION THAT HAS SEEMINGLY RESOLVED. PT'S VITAL SIGNS HAVE BEEN STABLE THIS SHIFT AND THERE HAVE NOT BEEN ANY ACUTE EVENTS OVERNIGHT. PT POTENTIALLY WILL DISCHARGE TODAY.
[2023-04-22 07:14] VITALS: BP 146/63
[2023-04-22] MEDS ORDERED: DULERA 100 MCG/13 GM INH (12:51)
[2023-04-22] MEDS ORDERED: DOCU100 PO (12:51)
== END 2023-04-22 14:04 | disposition home or self-care (01) | DRG 390 ==
LOC: ER 05:21 → SURS 08:21
PROVIDERS: Emergency Medicine; Internal Medicine; ADMIT Internal Medicine
PROC: 0D9670Z Drainage of Stomach with Drainage Device, Via Natural or Artificial Opening (ICD-10-PCS; principal; 2023-04-19)
DX: K56.50 Intestinal adhesions [bands], unspecified as to partial versus complete obstruction (principal); J44.9 Chronic obstructive pulmonary disease, unspecified; M81.0 Age-related osteoporosis without current pathological fracture; G89.29 Other chronic pain; M54.9 Dorsalgia, unspecified; I25.10 Atherosclerotic heart disease of native coronary artery without angina pectoris; D72.829 Elevated white blood cell count, unspecified; M41.9 Scoliosis, unspecified; F12.90 Cannabis use, unspecified, uncomplicated; G47.00 Insomnia, unspecified; E87.6 Hypokalemia; Z88.8 Allergy status to other drugs, medicaments and biological substances; Z79.52 Long term (current) use of systemic steroids; I25.2 Old myocardial infarction; Z90.49 Acquired absence of other specified parts of digestive tract; Z96.652 Presence of left artificial knee joint; Z85.42 Personal history of malignant neoplasm of other parts of uterus; Z85.41 Personal history of malignant neoplasm of cervix uteri; Z90.710 Acquired absence of both cervix and uterus; Z98.1 Arthrodesis status; Z96.1 Presence of intraocular lens; Z87.891 Personal history of nicotine dependence
CPT/HCPCS: 36415; 71045; 74018; 74177; 74250; 80048; 80053; 80069; 83690; 83735; 85025; 94640; 94664; 94760; 96361; 96374; 96376; 99285-25; A9270; C9113; J1650; J2405; J3010; J7030; Q9967

== ENCOUNTER 2023-10-13 10:11 | Inpatient (IN) | payer OTHER ==
[~2023-10-13] VITALS: Ht 154.9 cm; Wt 38.6 kg
[2023-10-15 07:00] VITALS: BP 128/72
== END 2023-10-15 11:56 | disposition home or self-care (01) | DRG 390 ==
LOC: ER 10:11 → SURS 15:58
PROVIDERS: ADMIT Internal Medicine
PROC: 0D9670Z Drainage of Stomach with Drainage Device, Via Natural or Artificial Opening (ICD-10-PCS; principal; 2023-10-13)
DX: K56.600 Partial intestinal obstruction, unspecified as to cause (principal); J44.9 Chronic obstructive pulmonary disease, unspecified; F11.90 Opioid use, unspecified, uncomplicated; Z66 Do not resuscitate; I10 Essential (primary) hypertension; F17.210 Nicotine dependence, cigarettes, uncomplicated; E78.5 Hyperlipidemia, unspecified; I25.10 Atherosclerotic heart disease of native coronary artery without angina pectoris; Z90.710 Acquired absence of both cervix and uterus; Z90.89 Acquired absence of other organs; Z90.49 Acquired absence of other specified parts of digestive tract; Z98.890 Other specified postprocedural states; Z98.51 Tubal ligation status; Z88.8 Allergy status to other drugs, medicaments and biological substances; Z79.899 Other long term (current) drug therapy; I25.2 Old myocardial infarction

== ENCOUNTER → 2024-01-03 | Outpatient (CLI) | payer OTHER ==
[~2024-01-03] MED LIST changes: +CALCIUM CARBON500 M1 PO; +CHLO25B PO; +DULERA 100 MCG/13 GM INH; +Hydrocodone Bita5 GM PO; +SYMBICORT 16010.2 GM INH; +VITAMIN D310 MC4 PO
[2024-01-03 13:12] LABS: BASOPHILS ABSOLUTE AUTO 0.07 K/mm3 (0.00-0.23); BASOPHILS PERCENT AUTO 1 % (0-2); EOSINOPHILS ABSOLUTE AUTO 0.41 K/mm3 (0.00-0.68); EOSINOPHILS PERCENT AUTO 5 % (0-6); Hematocrit 43.2 % (33.0-51.0); Hemoglobin 13.8 g/dL (11.5-16.0); IMMATURE GRAN ABSOLUTE AUTO 0.01 K/mm3 (0.00-0.10); IMMATURE GRAN PERCENT AUTO 0 % (0-1); LYMPHOCYTES ABSOLUTE AUTO 1.84 K/mm3 (0.84-5.20); LYMPHOCYTES PERCENT AUTO 23 % (21-46); MONOCYTES ABSOLUTE AUTO 0.58 K/mm3 (0.16-1.47); MONOCYTES PERCENT AUTO 7 % (4-13); Mean Corpuscular HGB 30.2 pg (26.0-34.0); Mean Corpuscular HGB Conc 31.9 g/dL (31.5-36.5); Mean Corpuscular Volume 95 fL (80-100); Mean Platelet Volume 9.1 fL (9.1-12.4); NEUTROPHILS ABSOLUTE AUTO 5.19 K/mm3 (1.96-9.15); NEUTROPHILS PERCENT AUTO 64 % (41-73); Platelet Count 264 K/mm3 (150-400); RDW Coefficient Variation 13.7 % (11.7-14.2); RDW Standard Deviation 47.6 fL (35.1-46.3); Red Blood Cell Count 4.57 M/mm3 (3.80-5.20)
[2024-01-03 13:26] LABS: Albumin/Globulin Ratio 1.1 (0.8-1.8); Bilirubin, Total 0.3 mg/dL (0.1-1.0); Bun/Creatinine Ratio 19.6 (12.0-20.0); Calcium, Blood 9.9 mg/dL (8.5-10.1); Creatinine, Blood 0.92 mg/dL (0.40-1.00); Globulin, Blood 3.5 g/dL (2.2-4.0); Total Protein, Blood 7.5 g/dL (6.4-8.2)
== END | disposition home or self-care (01) ==
LOC: LAB 13:06 → LAB SHORT 13:06
PROVIDERS: Physician Assistant
DX: R07.9 Chest pain, unspecified (principal)
CPT/HCPCS: 80053; 83880; 84484; 85025

== ENCOUNTER 2024-04-10 19:38 | Inpatient (IN) | payer OTHER ==
[~2024-04-10] VITALS: Ht 154.9 cm; Wt 41.3 kg
[2024-04-10 19:53] LABS: BASOPHILS ABSOLUTE AUTO 0.07 K/mm3 (0.00-0.23); BASOPHILS PERCENT AUTO 1 % (0-2); EOSINOPHILS ABSOLUTE AUTO 0.55 K/mm3 (0.00-0.68); EOSINOPHILS PERCENT AUTO 5 % (0-6); Hematocrit 42.5 % (33.0-51.0); Hemoglobin 13.9 g/dL (11.5-16.0); IMMATURE GRAN ABSOLUTE AUTO 0.03 K/mm3 (0.00-0.10); IMMATURE GRAN PERCENT AUTO 0 % (0-1); LYMPHOCYTES ABSOLUTE AUTO 2.35 K/mm3 (0.84-5.20); LYMPHOCYTES PERCENT AUTO 21 % (21-46); MONOCYTES ABSOLUTE AUTO 0.96 K/mm3 (0.16-1.47); MONOCYTES PERCENT AUTO 9 % (4-13); Mean Corpuscular HGB 30.5 pg (26.0-34.0); Mean Corpuscular HGB Conc 32.7 g/dL (31.5-36.5); Mean Corpuscular Volume 93 fL (80-100); NEUTROPHILS ABSOLUTE AUTO 7.19 K/mm3 (1.96-9.15); NEUTROPHILS PERCENT AUTO 65 % (41-73); Platelet Count 281 K/mm3 (150-400); RDW Coefficient Variation 14.1 % (11.7-14.2); RDW Standard Deviation 48.1 fL (35.1-46.3); Red Blood Cell Count 4.56 M/mm3 (3.80-5.20); White Blood Cell Count 11.15 K/mm3 (4.00-11.30)
[2024-04-10 20:06] LABS: Albumin/Globulin Ratio 1.3 (0.8-1.8); Bilirubin, Total 0.2 mg/dL (0.1-1.0); Bun/Creatinine Ratio 20.4 (12.0-20.0); Calcium, Blood 10.1 mg/dL (8.5-10.1); Creatinine, Blood 0.88 mg/dL (0.40-1.00); Globulin, Blood 3.1 g/dL (2.2-4.0); Potassium, Blood 4.7 mmol/L (3.5-5.5); Total Protein, Blood 7.1 g/dL (6.4-8.2)
[2024-04-10] MEDS ORDERED: Metoclopramide HCl 5MG / ML 2ML Vial IV ONE (21:00)
[2024-04-10] MEDS ORDERED: Morphine Sulfate 4 MG/1 ML Injection IV ONE (21:00)
[2024-04-10] MEDS ORDERED: Lactated Ringer's 1,000 ML IV ONE ×2 (21:00)
[2024-04-10] MEDS ORDERED: Lidocaine 2% Jelly Uro-Jet TOP ONE (22:15)
[2024-04-10] MEDS ORDERED: Metoclopramide HCl 5MG / ML 2ML Vial IV PRN (22:35)
[2024-04-10] MEDS ORDERED: Acetaminophen 325 MG TABLET PO PRN (22:35)
[2024-04-10] MEDS ORDERED: Ondansetron HCl 2 MG / ML 2ML Vial IV PRN (22:40)
[2024-04-10] MEDS ORDERED: Morphine Sulfate 4 MG/1 ML Injection IV PRN (22:40)
[2024-04-10] MEDS ORDERED: Naloxone HCl 0.4MG / ML 1ML Vial IV PRN (22:40)
[2024-04-10] MEDS ORDERED: FLU VACC TS2024-25(6MOS UP)/PF 45 MCG/0.5 ML SYRINGE IM ONE (22:40)
[2024-04-10] MEDS ORDERED: Acetaminophen 650 MG Supp PR PRN (22:40)
[2024-04-10] MEDS ORDERED: TraZODone HCl 100 MG Tab PO PRN (22:55)
[2024-04-10] MEDS ORDERED: HYDROcodone 10-APAP 325 TAB PO PRN (23:00)
[2024-04-10] MEDS ORDERED: Lactated Ringer's 1,000 ML IV SCH (23:00)
[2024-04-11] MEDS ORDERED: Morphine Sulfate 4 MG/1 ML Injection IV ONE (00:30)
[2024-04-11] MEDS ORDERED: Morphine Sulfate 4 MG/1 ML Injection IV PRN (01:00)
[2024-04-11] MEDS ORDERED: HYDROmorphone HCl/Pf 1MG SYR IV ONE (03:00)
[2024-04-11] MEDS ORDERED: HYDROmorphone HCl/Pf 1MG SYR IV PRN (03:00)
[2024-04-11 05:55] LABS: BASOPHILS ABSOLUTE AUTO 0.08 K/mm3 (0.00-0.23); BASOPHILS PERCENT AUTO 1 % (0-2); EOSINOPHILS ABSOLUTE AUTO 0.07 K/mm3 (0.00-0.68); EOSINOPHILS PERCENT AUTO 0 % (0-6); Hematocrit 41.8 % (33.0-51.0); IMMATURE GRAN ABSOLUTE AUTO 0.05 K/mm3 (0.00-0.10); IMMATURE GRAN PERCENT AUTO 0 % (0-1); LYMPHOCYTES ABSOLUTE AUTO 0.68 K/mm3 (0.84-5.20); LYMPHOCYTES PERCENT AUTO 4 % (21-46); MONOCYTES ABSOLUTE AUTO 1.28 K/mm3 (0.16-1.47); MONOCYTES PERCENT AUTO 8 % (4-13); Mean Corpuscular HGB 31.1 pg (26.0-34.0); Mean Corpuscular HGB Conc 33.5 g/dL (31.5-36.5); Mean Corpuscular Volume 93 fL (80-100); Mean Platelet Volume 9.1 fL (9.1-12.4); NEUTROPHILS ABSOLUTE AUTO 14.52 K/mm3 (1.96-9.15); NEUTROPHILS PERCENT AUTO 87 % (41-73); Platelet Count 255 K/mm3 (150-400); RDW Coefficient Variation 13.9 % (11.7-14.2); RDW Standard Deviation 47.1 fL (35.1-46.3); White Blood Cell Count 16.68 K/mm3 (4.00-11.30)
[2024-04-11 07:05] LABS: Albumin, Blood 3.7 g/dL (3.4-5.0); Albumin/Globulin Ratio 1.2 (0.8-1.8); Bilirubin, Total 0.5 mg/dL (0.1-1.0); Bun/Creatinine Ratio 24.5 (12.0-20.0); Calcium, Blood 9.5 mg/dL (8.5-10.1); Creatinine, Blood 0.69 mg/dL (0.40-1.00); Magnesium, Blood 1.9 mg/dL (1.6-2.4); Potassium, Blood 4.6 mmol/L (3.5-5.5); Total Protein, Blood 6.7 g/dL (6.4-8.2)
[2024-04-11 08:26] VITALS: BP 123/72
[2024-04-11] MEDS ORDERED: Crestor40 MG PO (08:56)
[2024-04-11] MEDS ORDERED: LOSA25 PO (08:57)
[2024-04-11] MEDS ORDERED: HydroCHLOROthiazide 25 mg Tab PO SCH (09:00)
[2024-04-11] MEDS ORDERED: Lactated Ringer's 1,000 ML IV SCH (11:55)
--- NOTE | 2024-04-11 13:30 | NUR ---
Upon receiving a referral for spiritual care, I visited the patient. 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 She shares about her family unit complications and the ache of family members who have gone down the wrong path in life. She is tearful as she talks about the deaths of loved ones. She states that it is her Christianity aung that gives her strength in challenging times. I provided therapeutic listening, grief support, gentle executive assistant to general counsel and prayer. Patient responded well and showed signs of greater peace. I will continue to remain available to patient and family.
[2024-04-11] MEDS ORDERED: Ipratropium/Albuterol SulF 2.5-0.5MG/3 ML Amp INH SCH (15:20)
[2024-04-11] MEDS ORDERED: Mometasone/Formoterol MDI 200/5 mcg 13 GM INH SCH (15:25)
[2024-04-11 15:32] VITALS: BP 120/71
--- NOTE | 2024-04-11 18:07 | NUR ---
Pt admitted today from ER d/t nausea, vomiting, extreme abd pain and distention. Pt has history of extensive abdominal surgery and repeated bowel obstructions. NG tube placed in the ER with 250 brown fluid output this shift, pt states she is no longer nauseaus. Pt pain treated with dilauded effectivly throughout shift. Pt A&Ox4, VSS, RA, SBA to [facility], no BM since 04/09, reports passing gas, bowel sounds normoactive. Pt remains NPO, plan for small bowel follow through study tomorrow. LR running at 100ml/hr. Pt able to make need known, call light in reach.
[2024-04-11 20:08] VITALS: BP 119/66
[2024-04-11] MEDS ORDERED: Mirtazapine 15 MG SoluTab PO SCH (21:00)
[2024-04-12 04:36] VITALS: BP 120/74
[2024-04-12 06:26] LABS: BASOPHILS ABSOLUTE AUTO 0.04 K/mm3 (0.00-0.23); BASOPHILS PERCENT AUTO 0 % (0-2); EOSINOPHILS ABSOLUTE AUTO 0.15 K/mm3 (0.00-0.68); EOSINOPHILS PERCENT AUTO 1 % (0-6); Hematocrit 36.2 % (33.0-51.0); Hemoglobin 12.4 g/dL (11.5-16.0); IMMATURE GRAN ABSOLUTE AUTO 0.11 K/mm3 (0.00-0.10); IMMATURE GRAN PERCENT AUTO 1 % (0-1); LYMPHOCYTES ABSOLUTE AUTO 1.16 K/mm3 (0.84-5.20); LYMPHOCYTES PERCENT AUTO 11 % (21-46); MONOCYTES ABSOLUTE AUTO 1.25 K/mm3 (0.16-1.47); MONOCYTES PERCENT AUTO 12 % (4-13); Mean Corpuscular HGB 31.7 pg (26.0-34.0); Mean Corpuscular HGB Conc 34.3 g/dL (31.5-36.5); Mean Corpuscular Volume 93 fL (80-100); NEUTROPHILS ABSOLUTE AUTO 7.76 K/mm3 (1.96-9.15); NEUTROPHILS PERCENT AUTO 74 % (41-73); RDW Coefficient Variation 14.2 % (11.7-14.2); RDW Standard Deviation 48.1 fL (35.1-46.3); Red Blood Cell Count 3.91 M/mm3 (3.80-5.20); White Blood Cell Count 10.47 K/mm3 (4.00-11.30)
[2024-04-12 06:48] LABS: Bun/Creatinine Ratio 24.1 (12.0-20.0); Calcium, Blood 8.9 mg/dL (8.5-10.1); Creatinine, Blood 0.66 mg/dL (0.40-1.00); Potassium, Blood 3.9 mmol/L (3.5-5.5)
[2024-04-12 07:09] VITALS: BP 131/72
[2024-04-12 08:04] LABS: Mean Platelet Volume 9.7 fL (9.1-12.4); Platelet Count 208 K/mm3 (150-400)
[2024-04-12] MEDS ORDERED: Losartan Potassium 25 MG Tab PO SCH (09:00)
[2024-04-12] MEDS ORDERED: Rosuvastatin Calcium 10 MG Tab PO SCH (09:00)
--- NOTE | 2024-04-12 15:03 | NUR ---
REMOVED NG TUBE, PATIENT TOLERATED WITH EASE, CLEARLY MAKES NEEDS KNOWN, TOLERATING ICE CHIPS NOW
[2024-04-12 15:59] VITALS: BP 128/67
--- NOTE | 2024-04-12 17:58 | NUR ---
ALERT AND ORIENTED X4, NO ACUTE CHANGES, SBO RESOLVED, NG REMOVED, PATIENT EASILY TOLERATING CLEAR LIQUIDS, DENIES NAUSEA, VSS, CLEARLY MAKES NEEDS KNOWN, CALL LIGHT WITH IN REACH
[2024-04-12 20:19] VITALS: BP 114/60
[2024-04-13 04:39] VITALS: BP 122/67
--- NOTE | 2024-04-13 05:53 | NUR ---
SHIFT SUMMARY PT A&OX4, VSS, AMB IND TO THE BSC, TOLERATING PO, VOIDING, AND PAIN MANAGED PER EMAR. PT DENIED N/V T/O SHIFT. NO OTHER ACUTE CHANGES. CALL LIGHT WITHIN REACH AND PT ABLE TO MAKE NEEDS KNOWN.
--- NOTE | 2024-04-13 07:36 | NUR ---
SAT READING 86% ON RA, RT IN ROOM WITH PATIENT NOW, PATIENT REPORTS SOME SOB
[2024-04-13 08:05] VITALS: BP 126/73
[2024-04-13] MEDS ORDERED: Furosemide 20 MG Tab PO ONE (13:50)
[2024-04-13 14:56] LABS: Bicarbonate Venous 30.1 mmol/L (24.0-30.0); PCO2 Venous 43.6 mmHg (38-42); pH Blood Venous 7.46 (7.34-7.37)
[2024-04-13 16:15] VITALS: BP 113/68
--- NOTE | 2024-04-13 17:53 | NUR ---
NO ACUTE CHANGES, SATS ON RA THIS AM 88% WITH PATIENT REPORTING SOB, ON 1L O2 NOW 93% WITHOUT SOB, CXRAY NEGATIVE, MEDICATED WITH LASIX, VBG DONE, PATIENT HAS LONG STANDING HISTORY OF COPD, DENIED NV, MEDICATED FOR BACK PAIN, LS RHONCHI WITH CRACKLES, WEAK COUGH, UNABLE TO CLEAR CONGESTION, INDEPENDANT TO BSC, PLEASANT TO CARE, SL IV TO LEFT AV, CALL LIGHT WITH IN REACH, WILL RELAY TO PM LUIS CARLOS
[2024-04-13 20:34] VITALS: BP 101/70
[2024-04-14 04:04] VITALS: BP 113/60
--- NOTE | 2024-04-14 05:25 | NUR ---
SHIFT SUMMARY - NO ACUTE CHANGES THROUGHOUT THIS SHIFT. PT TURNS HERSELF INDEPENDENTLY IN BED. UP TO BSC INDEPENDENTLY. PT IS ANTICIPATING DISCHARGE HOME TODAY. PT TOLERATED PO FLUIDS WITHOUT COMPLICATIONS. WILL CONTINUE TO MONITOR UNTIL AM SHIFT CHANGE. FLUIDS AT BEDSIDE. CALL LIGHT WITHIN REACH. BED IN LOW POSITION.
[2024-04-14 07:42] VITALS: BP 120/70
--- NOTE | 2024-04-14 10:48 | NUR ---
DR LUNA ROUNDED ON PATIENT, HOME 02 EVAL ORDERED, POSSIBLE DISCHARGE LATER TODAY
--- NOTE | 2024-04-14 13:40 | NUR ---
HOME 02 EVAL DONE, PATIENT TO GO HOME WITH 2L O2 VIA NC, PLEASANT TO ALL CARE
[2024-04-14] MEDS ORDERED: ONDA4ODT MM (14:13)
--- NOTE | 2024-04-14 16:01 | NUR ---
DISCHARGED HOME 1525, SON ACCOMPANYING, BOTH PATIENT AND SON REPORTED UNDERSTANDING OF INSTRUCTIONS, MEDICATIONS, AND FOLLOW UP NEEDS. BOTH DENIED FURTHER QUESTIONS. MEDICATIONS FAXED TO [facility], PERSONAL BELONGINGS WITH PATIENT
== END 2024-04-14 15:28 | disposition home or self-care (01) | DRG 388 ==
LOC: ER 19:38 → MEDS 22:33 → ERHOLD 22:33 → MEDS 04-11 08:33
PROVIDERS: Family Medicine; Student in an Organized Health Care Education/Training Program; ADMIT Student in an Organized Health Care Education/Training Program
PROC: 0D9670Z Drainage of Stomach with Drainage Device, Via Natural or Artificial Opening (ICD-10-PCS; principal; 2024-04-10)
DX: K56.600 Partial intestinal obstruction, unspecified as to cause (principal); J96.01 Acute respiratory failure with hypoxia; I51.81 Takotsubo syndrome; Z66 Do not resuscitate; J44.9 Chronic obstructive pulmonary disease, unspecified; I10 Essential (primary) hypertension; F17.210 Nicotine dependence, cigarettes, uncomplicated; G89.29 Other chronic pain; M54.9 Dorsalgia, unspecified; M10.9 Gout, unspecified; Z28.21 Immunization not carried out because of patient refusal; R54 Age-related physical debility; Z96.652 Presence of left artificial knee joint; Z98.51 Tubal ligation status; Z88.8 Allergy status to other drugs, medicaments and biological substances; Z79.899 Other long term (current) drug therapy; I25.2 Old myocardial infarction; Z90.710 Acquired absence of both cervix and uterus; Z98.890 Other specified postprocedural states; Z90.49 Acquired absence of other specified parts of digestive tract; R73.9 Hyperglycemia, unspecified; Z85.42 Personal history of malignant neoplasm of other parts of uterus; Z85.41 Personal history of malignant neoplasm of cervix uteri; Z98.49 Cataract extraction status, unspecified eye; G47.00 Insomnia, unspecified
CPT/HCPCS: 36415; 71045; 74018; 74177; 74250; 80048; 80053; 82803; 82947; 83690; 83735; 85025; 94640; 94664; 94760; 94761; 96361; 96374-59; 96375; 99285-25; A9270; J1171; J2270; J2405; J2765; J7120; Q9967

== ENCOUNTER 2024-06-07 16:21 | Inpatient (IN) | payer OTHER ==
[~2024-06-07] VITALS: Ht 154.9 cm; Wt 36.5 kg
[~2024-06-07 16:21] MED LIST changes: +ALBU90OI INH; +Crestor40 MG PO; -Desyrel150 MG PO; +LOSA25 PO; +TRAZ100 PO
[2024-06-07] MEDS ORDERED: AZIT250 PO ×2 (16:37→21:39)
[2024-06-07] MEDS ORDERED: BENZONATATE100 MG PO (16:37)
[2024-06-07] MEDS ORDERED: PRED20 PO (16:37)
[2024-06-07 16:42] LABS: BASOPHILS ABSOLUTE AUTO 0.02 K/mm3 (0.00-0.23); BASOPHILS PERCENT AUTO 0 % (0-2); EOSINOPHILS ABSOLUTE AUTO 0.02 K/mm3 (0.00-0.68); EOSINOPHILS PERCENT AUTO 0 % (0-6); Hemoglobin 13.1 g/dL (11.5-16.0); IMMATURE GRAN ABSOLUTE AUTO 0.03 K/mm3 (0.00-0.10); IMMATURE GRAN PERCENT AUTO 0 % (0-1); LYMPHOCYTES ABSOLUTE AUTO 1.45 K/mm3 (0.84-5.20); LYMPHOCYTES PERCENT AUTO 12 % (21-46); MONOCYTES ABSOLUTE AUTO 0.84 K/mm3 (0.16-1.47); MONOCYTES PERCENT AUTO 7 % (4-13); Mean Corpuscular HGB 30.3 pg (26.0-34.0); Mean Corpuscular HGB Conc 32.8 g/dL (31.5-36.5); Mean Corpuscular Volume 92 fL (80-100); Mean Platelet Volume 8.8 fL (9.1-12.4); NEUTROPHILS ABSOLUTE AUTO 9.56 K/mm3 (1.96-9.15); NEUTROPHILS PERCENT AUTO 80 % (41-73); Platelet Count 274 K/mm3 (150-400); RDW Coefficient Variation 14.1 % (11.7-14.2); RDW Standard Deviation 47.8 fL (35.1-46.3); Red Blood Cell Count 4.33 M/mm3 (3.80-5.20); White Blood Cell Count 11.92 K/mm3 (4.00-11.30)
[2024-06-07] MEDS ORDERED: Morphine Sulfate 4 MG/1 ML Injection IV ONE (17:00)
[2024-06-07 17:04] LABS: Albumin, Blood 3.6 g/dL (3.4-5.0); Albumin/Globulin Ratio 1.1 (0.8-1.8); Bilirubin, Total 0.4 mg/dL (0.1-1.0); Calcium, Blood 9.7 mg/dL (8.5-10.1); Creatinine, Blood 0.81 mg/dL (0.40-1.00); Globulin, Blood 3.3 g/dL (2.2-4.0); Potassium, Blood 4.3 mmol/L (3.5-5.5); Total Protein, Blood 6.9 g/dL (6.4-8.2)
[2024-06-07] MEDS ORDERED: FLU VACC TS2024-25(6MOS UP)/PF 45 MCG/0.5 ML SYRINGE IM SCH (18:50)
[2024-06-07] MEDS ORDERED: Ondansetron HCl 2 MG / ML 2ML Vial IV PRN (18:50)
[2024-06-07] MEDS ORDERED: Acetaminophen 325 MG TABLET PO PRN (18:50)
[2024-06-07] MEDS ORDERED: Morphine Sulfate 4 MG/1 ML Injection IV PRN (18:50)
[2024-06-07] MEDS ORDERED: Lactated Ringer's 1,000 ML IV SCH (19:00)
[2024-06-07] MEDS ORDERED: Benzonatate 100 MG Cap PO PRN (19:50)
[2024-06-07] MEDS ORDERED: HYDROcodone 5-APAP 325 TAB PO PRN (19:55)
[2024-06-07] MEDS ORDERED: Mometasone/Formoterol MDI 200/5 mcg 13 GM INH SCH (20:05)
[2024-06-07] MEDS ORDERED: Albuterol HFA200 ACT/6.7 GM INH INH PRN (20:05)
[2024-06-07] MEDS ORDERED: Mirtazapine 15 MG Tab PO SCH (21:00)
[2024-06-07] MEDS ORDERED: TraZODone HCl 100 MG Tab PO SCH (21:00)
[2024-06-07 22:03] VITALS: BP 158/82
[2024-06-07] MEDS ORDERED: Albuterol 2.5 MG/3 ML VIAL INH PRN (22:50)
[2024-06-08 04:20] VITALS: BP 174/86
[2024-06-08] MEDS ORDERED: HydrALAZINE HCl 20 MG / ML 1ML Vial IV PRN (04:30)
--- NOTE | 2024-06-08 06:00 | NUR ---
Shift Summary Pt admitted to this floor for SBO. Dr. Malik was consulted in the ED per order in the chart. PT has been strict NPO with NG tube in place on low+intermittent suction. Around 500 mL of dark brown output from NG tube since pt arrived. She having severe abd pain which is well managed per EMAR. Pt is AOx4, 1 assist to BSC. She slept well t/o most of the night. She is rcving LR@75. SCDs in place. on 3L oxymizer mask, up from 2L NC which is her BL to maintane O2>92%. She is on cont. biox.
[2024-06-08 06:26] VITALS: BP 150/83
[2024-06-08 06:39] LABS: BASOPHILS ABSOLUTE AUTO 0.04 K/mm3 (0.00-0.23); BASOPHILS PERCENT AUTO 0 % (0-2); EOSINOPHILS ABSOLUTE AUTO 0.12 K/mm3 (0.00-0.68); EOSINOPHILS PERCENT AUTO 1 % (0-6); Hematocrit 42.7 % (33.0-51.0); Hemoglobin 13.9 g/dL (11.5-16.0); IMMATURE GRAN ABSOLUTE AUTO 0.04 K/mm3 (0.00-0.10); IMMATURE GRAN PERCENT AUTO 0 % (0-1); LYMPHOCYTES ABSOLUTE AUTO 2.59 K/mm3 (0.84-5.20); LYMPHOCYTES PERCENT AUTO 20 % (21-46); MONOCYTES ABSOLUTE AUTO 1.06 K/mm3 (0.16-1.47); MONOCYTES PERCENT AUTO 8 % (4-13); Mean Corpuscular HGB 30.2 pg (26.0-34.0); Mean Corpuscular HGB Conc 32.6 g/dL (31.5-36.5); Mean Corpuscular Volume 93 fL (80-100); Mean Platelet Volume 9.2 fL (9.1-12.4); NEUTROPHILS ABSOLUTE AUTO 8.87 K/mm3 (1.96-9.15); NEUTROPHILS PERCENT AUTO 70 % (41-73); Platelet Count 302 K/mm3 (150-400); RDW Coefficient Variation 14.1 % (11.7-14.2); RDW Standard Deviation 47.6 fL (35.1-46.3); White Blood Cell Count 12.72 K/mm3 (4.00-11.30)
[2024-06-08 06:57] LABS: Magnesium, Blood 2.2 mg/dL (1.6-2.4)
[2024-06-08 07:07] LABS: Albumin, Blood 3.6 g/dL (3.4-5.0); Albumin/Globulin Ratio 1.1 (0.8-1.8); Bilirubin, Total 0.6 mg/dL (0.1-1.0); Calcium, Blood 9.7 mg/dL (8.5-10.1); Creatinine, Blood 0.68 mg/dL (0.40-1.00); Globulin, Blood 3.2 g/dL (2.2-4.0); Potassium, Blood 3.8 mmol/L (3.5-5.5); Thyroid Stimulating Hormone 4.07 uIU/mL (0.360-4.800); Total Protein, Blood 6.8 g/dL (6.4-8.2)
[2024-06-08 07:37] VITALS: BP 130/68
[2024-06-08] MEDS ORDERED: Rosuvastatin Calcium 10 MG Tab PO SCH (09:00)
[2024-06-08] MEDS ORDERED: Losartan Potassium 25 MG Tab PO SCH (09:00)
[2024-06-08] MEDS ORDERED: Azithromycin 250 MG in NS 250 ML IV SCH (13:00)
[2024-06-08] MEDS ORDERED: NS 250 ML IV PRN (13:10)
[2024-06-08 15:44] VITALS: BP 147/65
--- NOTE | 2024-06-08 18:08 | NUR ---
PT AOX4 AND COOPERATIVE OF CARE. PT TREATED FOR ABD PAIN PER EMAR. PT REPORTED SOME UPPER QUADRANT PAIN AND DR JOHNS WAS MADE AWARE THE PAIN HAS SINCE MIGRATED LOWER. PT'S NG TUBE IS WORKING. PT IS A ONE PERSON TO BEDSIDE COMMODE. CALL LIGHT IS WITHIN REACH WILL CONITNUE TO MONITOR.
[2024-06-08 19:27] VITALS: BP 159/67
--- NOTE | 2024-06-09 04:22 | NUR ---
SHIFT SUMMARY PT A&Ox4 AND PLEASANT. NG TUBE HOOKED TO INTERMITENT SUCTION AND DRAINING BROWN LIQUID. PT REPORTS ABD TENDERNESS AND PAIN. MEDICATED PER EMAR WITH GOOD EFFECT. DENIES PASSING GAS. NO C/O NAUSEA. PT NPO. NO EVENTS ON TELE. BED IN LOWEST POSITION AND CALL LIGHT IN REACH.
[2024-06-09 04:46] VITALS: BP 147/59
[2024-06-09 06:23] LABS: BASOPHILS ABSOLUTE AUTO 0.04 K/mm3 (0.00-0.23); BASOPHILS PERCENT AUTO 0 % (0-2); EOSINOPHILS ABSOLUTE AUTO 0.13 K/mm3 (0.00-0.68); EOSINOPHILS PERCENT AUTO 1 % (0-6); Hemoglobin 12.8 g/dL (11.5-16.0); IMMATURE GRAN ABSOLUTE AUTO 0.04 K/mm3 (0.00-0.10); IMMATURE GRAN PERCENT AUTO 0 % (0-1); LYMPHOCYTES PERCENT AUTO 9 % (21-46); MONOCYTES ABSOLUTE AUTO 1.24 K/mm3 (0.16-1.47); MONOCYTES PERCENT AUTO 8 % (4-13); Mean Corpuscular HGB 30.5 pg (26.0-34.0); Mean Corpuscular HGB Conc 32.8 g/dL (31.5-36.5); Mean Corpuscular Volume 93 fL (80-100); Mean Platelet Volume 9.2 fL (9.1-12.4); NEUTROPHILS ABSOLUTE AUTO 12.49 K/mm3 (1.96-9.15); NEUTROPHILS PERCENT AUTO 81 % (41-73); Platelet Count 291 K/mm3 (150-400); RDW Coefficient Variation 13.9 % (11.7-14.2); RDW Standard Deviation 47.3 fL (35.1-46.3); Red Blood Cell Count 4.19 M/mm3 (3.80-5.20); White Blood Cell Count 15.34 K/mm3 (4.00-11.30)
[2024-06-09 06:45] LABS: Bun/Creatinine Ratio 27.3 (12.0-20.0); Calcium, Blood 9.5 mg/dL (8.5-10.1); Creatinine, Blood 0.66 mg/dL (0.40-1.00)
[2024-06-09 08:02] VITALS: BP 154/71
[2024-06-09] MEDS ORDERED: Piperacillin/Tazobactam Sod 3.375 GM in NS 100 ML IV SCH (13:00)
--- NOTE | 2024-06-09 15:03 | NUR ---
PT TO RADIOLOGY FOR XRAYS, NG CLAMPED, PT REPORTS NAUSEA. PT RETURNED TO ROOM AT 1517 AND NG RECONNECTED TO LIS WITH OUTPUT OF HARPER SELF SECRETIONS
--- NOTE | 2024-06-09 16:19 | NUR ---
PT IS AOX4 AND COOPERATIVE OF ALL CARE. PT HAS HAD NG TUBE RUNNING TODAY WITH DARK BROWN/MAROOD COLORED OUTPUT.FOR BOWEL STUDY PT HAD NG TUBE STOPPED PT DID NOT TOLERATE THIS AND HAD TWO BOUGHTS OF EMESIS. ZOFRAN HAD BEEN GIVEN AFTER FIRST EMESIS, BUT WAS NOT EFFECTIVE. IMAGING WAS NOTIFIED AND NG TUBE WAS RESTARTED. PT HAS HAD AN EPISODE OF DESATING AND RT WAS CALLED. POSSIBLE ASPIRATION AND DR JOHNS NOTIFIED ORDERING A CHEST XRAY. PT IS ON 15L CURRENTLY. WILL CONTINUE TO MONITOR CLOSELY CALL LIGHT IS SEAN BLACKMON.
[2024-06-09 16:40] VITALS: BP 152/72
--- NOTE | 2024-06-09 16:50 | NUR ---
TO RADIOLOGY VIA [facility]. PT REPORTS NAUSEA. TOO EARLY TO MEDICATE
[2024-06-09 19:29] VITALS: BP 120/57
[2024-06-09] MEDS ORDERED: Pantoprazole Sodium 40 MG Injection IV SCH (21:00)
[2024-06-10 03:55] VITALS: BP 122/52
[2024-06-10 05:52] LABS: BASOPHILS ABSOLUTE AUTO 0.02 K/mm3 (0.00-0.23); BASOPHILS PERCENT AUTO 0 % (0-2); EOSINOPHILS ABSOLUTE AUTO 0.05 K/mm3 (0.00-0.68); EOSINOPHILS PERCENT AUTO 0 % (0-6); Hematocrit 35.7 % (33.0-51.0); Hemoglobin 11.7 g/dL (11.5-16.0); IMMATURE GRAN ABSOLUTE AUTO 0.06 K/mm3 (0.00-0.10); IMMATURE GRAN PERCENT AUTO 0 % (0-1); LYMPHOCYTES ABSOLUTE AUTO 0.79 K/mm3 (0.84-5.20); LYMPHOCYTES PERCENT AUTO 5 % (21-46); MONOCYTES ABSOLUTE AUTO 1.58 K/mm3 (0.16-1.47); MONOCYTES PERCENT AUTO 10 % (4-13); Mean Corpuscular HGB 30.7 pg (26.0-34.0); Mean Corpuscular HGB Conc 32.8 g/dL (31.5-36.5); Mean Corpuscular Volume 94 fL (80-100); Mean Platelet Volume 8.7 fL (9.1-12.4); NEUTROPHILS ABSOLUTE AUTO 12.94 K/mm3 (1.96-9.15); NEUTROPHILS PERCENT AUTO 84 % (41-73); Platelet Count 245 K/mm3 (150-400); RDW Coefficient Variation 14.1 % (11.7-14.2); RDW Standard Deviation 48.2 fL (35.1-46.3); Red Blood Cell Count 3.81 M/mm3 (3.80-5.20); White Blood Cell Count 15.44 K/mm3 (4.00-11.30)
[2024-06-10 06:42] LABS: Bun/Creatinine Ratio 31.8 (12.0-20.0); Calcium, Blood 9.6 mg/dL (8.5-10.1); Creatinine, Blood 0.76 mg/dL (0.40-1.00); Potassium, Blood 3.8 mmol/L (3.5-5.5)
--- NOTE | 2024-06-10 08:09 | NUR ---
Rn shift summary: Patient is alert and oriented. She denies pain throughout the shift. Patient did have a BM at the end of day shift. She has had a loose brown slool this am, incontinent. Pt continues to have the NG in place. Pt has had a few rare ice chips durning the night. NG fluid is light green and minimal. Pt continues to hypoactive BT. O2 remains at 4 liters via venti mask this shift with cont pulse ox. Pt lungs are diminished in the bases. Pt is up to BSC with 1 assist.
[2024-06-10 08:58] VITALS: BP 143/54
[2024-06-10] MEDS ORDERED: TPN Consult Notification XX ONE (12:20)
[2024-06-10 15:55] VITALS: BP 121/54
[2024-06-10] MEDS ORDERED: Parenteral Electolytes 40 ML,POTASSIUM PHOS,M-BASIC-D-BASIC 30 MMOL,Multivitamins 10 ML... IV SCH ×3 (17:00)
--- NOTE | 2024-06-10 19:35 | NUR ---
SHIFT SUMMARY PATIENT NPO, NG TUBE IN LEFT NOSTRIL TO LOW INTERMITTENT SUCTION. 125 ML OUTPUT FROM NG THIS SHIFT. ICE CHIPS OK PER DR. BELL, TOLERATING. STAND-PIVOT TO BSC OR CHAIR. SAT UP IN [facility] TODAY FOR ABOUT 3 HOURS. PPN STARTED THIS EVENING. UNSUCCESSFUL IN STARTING SECOND IV TO INFUSE INT ANTIBIOTICS, PASSED ON CARE TO CRIMINAL JUSTICE TEACHER RN CHANELLE. PATIENT ABLE TO MAKE NEEDS KNOWN AND CALLS APPROPRIATELY. IV MORPHINE AND PO NORCO GIVEN X1 EACH THIS SHIFT.
[2024-06-10 19:36] VITALS: BP 131/51
[2024-06-11 03:55] VITALS: BP 137/64
--- NOTE | 2024-06-11 05:30 | NUR ---
SHIFT SUMMARY PT ALERT AND ORIENTED TIMES 4 . PT HAD SECOND IV PLACED IN RIGHT HAND, BUT WAS HARD FLUSH AND PT STATED PAINFUL. ANOTHER IV WAS PLACED IN LEFT FOREARM. IV FLUSHES WELL AND PT STATES IS MUCH MORE COMFORTABLE. PT WAS RECEPTIVE TO CARE, TOOK HS MEDICATION AND IS APPROPRIATE WITH CALL LIGHT. PT ABLE TO MAKE NEEDS KNOWN. PT APPEARED TO SLEEP THROUGH THE NIGHT WITHOUT ISSUE. BED IN LOW POSITION, CALL LIGHT WITHIN REACH, RAILS TIMES 2.
[2024-06-11 06:44] LABS: Bun/Creatinine Ratio 41.8 (12.0-20.0); Creatinine, Blood 0.6 mg/dL (0.40-1.00); Magnesium, Blood 2.1 mg/dL (1.6-2.4); Phosphorus, Blood 1.6 mg/dL (2.5-4.9); Potassium, Blood 3.5 mmol/L (3.5-5.5)
[2024-06-11 07:47] VITALS: BP 119/54
[2024-06-11] MEDS ORDERED: TPN Consult Notification XX ONE (12:50)
[2024-06-11 15:23] VITALS: BP 138/62
[2024-06-11] MEDS ORDERED: Potassium Phosphate Dibasic 30 MM in Dextrose 5% 500 ML IV STA (15:26)
[2024-06-11] MEDS ORDERED: Potassium Phosphate Dibasic 30 MM,Multivitamins 10 ML,ZINC SULF/CUSO4 P-HYD/MN/CR/SE 1 ... IV SCH ×2 (17:00)
[2024-06-11 19:23] VITALS: BP 128/61
--- NOTE | 2024-06-11 19:48 | NUR ---
SHIFT SUMMARY PATIENT NPO AT START OF SHIFT. HAD TWO BOWEL MOVEMENTS, ONE MEDIUM AND ONE SMALL IN SIZE. PASSING GAS. DR. BELL DC'D NG TUBE THIS AFTERNOON STARTED PATIENT ON CLEAR LIQUID DIET. PRN MORPHINE GIVEN ONCE TODAY FOR PAIN TO THROAT AND NOSE. SCD'S WHILE IN BED.
[2024-06-12 03:16] VITALS: BP 135/65
--- NOTE | 2024-06-12 04:50 | NUR ---
NOC SUMMARY- PT TOLERATING CLEAR LIQUIDS. NO EPISODES OF N/V. PT HAS BEEN PASSING GAS AND DENIES ABD DISCOMFORT. PT HAS BEEN VOIDING. PT HAS BEEN SLEEPING IN NO DISTRESS. CALL LIGHT IN REACH.
[2024-06-12 05:41] LABS: BASOPHILS ABSOLUTE AUTO 0.03 K/mm3 (0.00-0.23); BASOPHILS PERCENT AUTO 0 % (0-2); EOSINOPHILS ABSOLUTE AUTO 0.37 K/mm3 (0.00-0.68); EOSINOPHILS PERCENT AUTO 3 % (0-6); Hematocrit 34.5 % (33.0-51.0); Hemoglobin 11.7 g/dL (11.5-16.0); IMMATURE GRAN ABSOLUTE AUTO 0.03 K/mm3 (0.00-0.10); IMMATURE GRAN PERCENT AUTO 0 % (0-1); LYMPHOCYTES ABSOLUTE AUTO 0.93 K/mm3 (0.84-5.20); LYMPHOCYTES PERCENT AUTO 9 % (21-46); MONOCYTES ABSOLUTE AUTO 1.17 K/mm3 (0.16-1.47); MONOCYTES PERCENT AUTO 11 % (4-13); Mean Corpuscular HGB 30.9 pg (26.0-34.0); Mean Corpuscular HGB Conc 33.9 g/dL (31.5-36.5); Mean Corpuscular Volume 91 fL (80-100); NEUTROPHILS ABSOLUTE AUTO 8.24 K/mm3 (1.96-9.15); NEUTROPHILS PERCENT AUTO 77 % (41-73); Platelet Count 274 K/mm3 (150-400); RDW Standard Deviation 46.8 fL (35.1-46.3); Red Blood Cell Count 3.79 M/mm3 (3.80-5.20); White Blood Cell Count 10.77 K/mm3 (4.00-11.30)
[2024-06-12 06:08] LABS: Bun/Creatinine Ratio 20.6 (12.0-20.0); Calcium, Blood 9.2 mg/dL (8.5-10.1); Creatinine, Blood 0.63 mg/dL (0.40-1.00); Magnesium, Blood 2.2 mg/dL (1.6-2.4); Phosphorus, Blood 2.9 mg/dL (2.5-4.9); Potassium, Blood 3.8 mmol/L (3.5-5.5)
[2024-06-12 07:14] VITALS: BP 189/64
[2024-06-12 08:22] VITALS: BP 135/67
--- NOTE | 2024-06-12 14:05 | NUR ---
DISCHARGE NOTE IV REMOVED. PATIENT DRESSED. FAMILY HERE TO [employer]. ESCORTED DOWN VIA WHEELCHAIR BY [employer] SUPERVISOR. DISCHARGE PACKET REVIEWED NO NEW PRESCRIPTIONS.
== END 2024-06-12 13:59 | disposition home or self-care (01) | DRG 389 ==
LOC: ER 16:21 → MEDS 18:45 → ERHOLD 18:45 → MEDS 21:55
PROVIDERS: Internal Medicine; Student in an Organized Health Care Education/Training Program; ADMIT Student in an Organized Health Care Education/Training Program
PROC: 0D9670Z Drainage of Stomach with Drainage Device, Via Natural or Artificial Opening (ICD-10-PCS; principal; 2024-06-07)
PROC: 3E0336Z Introduction of Nutritional Substance into Peripheral Vein, Percutaneous Approach (ICD-10-PCS; 2024-06-10)
DX: K56.600 Partial intestinal obstruction, unspecified as to cause (principal); J96.11 Chronic respiratory failure with hypoxia; J44.9 Chronic obstructive pulmonary disease, unspecified; I10 Essential (primary) hypertension; Z66 Do not resuscitate; J20.9 Acute bronchitis, unspecified; E83.39 Other disorders of phosphorus metabolism; R54 Age-related physical debility; Z96.652 Presence of left artificial knee joint; G89.29 Other chronic pain; M54.9 Dorsalgia, unspecified; F17.210 Nicotine dependence, cigarettes, uncomplicated; R00.1 Bradycardia, unspecified; F11.90 Opioid use, unspecified, uncomplicated; I25.2 Old myocardial infarction; Z79.52 Long term (current) use of systemic steroids; Z90.710 Acquired absence of both cervix and uterus; Z88.8 Allergy status to other drugs, medicaments and biological substances; Z79.899 Other long term (current) drug therapy; Z98.890 Other specified postprocedural states; Z87.19 Personal history of other diseases of the digestive system; Z90.89 Acquired absence of other organs; Z98.51 Tubal ligation status; Z90.49 Acquired absence of other specified parts of digestive tract; Z87.828 Personal history of other (healed) physical injury and trauma; Z85.41 Personal history of malignant neoplasm of cervix uteri; Z85.42 Personal history of malignant neoplasm of other parts of uterus; Z98.49 Cataract extraction status, unspecified eye; Z98.1 Arthrodesis status; Z99.81 Dependence on supplemental oxygen
CPT/HCPCS: 36415; 71045; 74177; 74250; 80048; 80053; 82947; 83690; 83735; 84100; 84145; 84443; 85025; 93005; 93010; 94640; 94664; 94760; 94762; 96374-59; 97110; 97116; 97161; 99285-25; A9270; J0360; J0456; J2270; J2405; J2470; J2543; J3411; J7050; J7060; J7120; Q9967

== ENCOUNTER 2025-02-07 12:00 | Inpatient (IN) | payer OTHER ==
[~2025-02-07] VITALS: Ht 154.9 cm; Wt 44.0 kg
[~2025-02-07 12:00] MED LIST changes: +AZIT250 PO; +BENZONATATE100 MG PO
[2025-02-07] MEDS ORDERED: Ondansetron HCl 2 MG / ML 2ML Vial IV ONE (12:15)
[2025-02-07] MEDS ORDERED: NS 1,000 ML IV SCH (12:15)
[2025-02-07] MEDS ORDERED: Morphine Sulfate 4 MG/1 ML Injection IV ONE ×2 (12:15→14:45)
[2025-02-07 12:59] LABS: BASOPHILS ABSOLUTE AUTO 0.06 K/mm3 (0.00-0.23); BASOPHILS PERCENT AUTO 0 % (0-2); EOSINOPHILS ABSOLUTE AUTO 0.11 K/mm3 (0.00-0.68); EOSINOPHILS PERCENT AUTO 1 % (0-6); Hematocrit 45.3 % (33.0-51.0); Hemoglobin 15.0 g/dL (11.5-16.0); IMMATURE GRAN ABSOLUTE AUTO 0.03 K/mm3 (0.00-0.10); IMMATURE GRAN PERCENT AUTO 0 % (0-1); LYMPHOCYTES ABSOLUTE AUTO 1.16 K/mm3 (0.84-5.20); LYMPHOCYTES PERCENT AUTO 7 % (21-46); MONOCYTES ABSOLUTE AUTO 1.52 K/mm3 (0.16-1.47); MONOCYTES PERCENT AUTO 9 % (4-13); Mean Corpuscular HGB Conc 33.1 g/dL (31.5-36.5); Mean Corpuscular Volume 93 fL (80-100); NEUTROPHILS ABSOLUTE AUTO 13.60 K/mm3 (1.96-9.15); NEUTROPHILS PERCENT AUTO 83 % (41-73); NRBC ABSOLUTE 0.00 K/mm3 (0.00-0.02); NRBC Auto 0.0 /100 WBC (0.0-0.2); Platelet Count 256 K/mm3 (150-400); RDW Coefficient Variation 13.9 % (11.7-14.2); RDW Standard Deviation 47.6 fL (35.1-46.3)
[2025-02-07 13:23] LABS: Alanine Aminotransfer (ALT/SGP 42.0 U/L (12-78); Albumin, Blood 4.3 g/dL (3.4-5.0); Albumin/Globulin Ratio 1.3 (0.8-1.8); Anion Gap 8.0 mmol/L (3-11); Aspartate Aminotrans (AST/SGOT 28.0 U/L (12-37); Bilirubin, Total 0.5 mg/dL (0.1-1.0); Blood Urea Nitrogen 24.0 mg/dL (8-24); CO2, Blood 27.0 mmol/L (21-32); Calcium, Blood 9.9 mg/dL (8.5-10.1); Chloride, Blood 105.0 mmol/L (98-108); Creatinine, Blood 0.84 mg/dL (0.40-1.00); Globulin, Blood 3.2 g/dL (2.2-4.0); Glucose, Blood 127.0 mg/dL (70-99); Potassium, Blood 3.9 mmol/L (3.5-5.5); Sodium, Blood 136.0 mmol/L (136-145); Total Protein, Blood 7.5 g/dL (6.4-8.2)
[2025-02-07] MEDS ORDERED: Ondansetron HCl 2 MG / ML 2ML Vial IV PRN (17:05)
[2025-02-07] MEDS ORDERED: FentaNYL Citrate 50 MCG/ML 2 ML Injection IV PRN (17:05)
[2025-02-07] MEDS ORDERED: Metoprolol Tartrate 1 MG/ML 5 ML VIAL IV PRN (17:10)
[2025-02-07] MEDS ORDERED: Budesonide 0.5 MG/2 ML RESP INH SCH (17:10)
[2025-02-07] MEDS ORDERED: Albuterol 2.5 MG/3 ML VIAL INH PRN (17:10)
[2025-02-07 18:46] VITALS: BP 141/70
[2025-02-07] MEDS ORDERED: Norco 10-325 T1 EACH (19:51)
[2025-02-07 19:59] VITALS: BP 134/63
[2025-02-07] MEDS ORDERED: Heparin Sodium,Porcine 5,000 UNIT/0.5 ML SDV SC SCH (21:00)
[2025-02-07 22:32] VITALS: BP 126/55
[2025-02-07 23:35] VITALS: BP 127/53
[2025-02-08] VITALS (8 sets, daily range): BP systolic 129–185; BP diastolic 61–78
--- NOTE | 2025-02-08 04:20 | NUR ---
NO ACUTE CHANGES DURING SHIFT. PATIENT IS ALERT AND ORIENTED X4, ABLE TO MAKE NEEDS KNOWN. PATIENT IS ABLE TO TURN SELF IN BED. A NEW IV WAS PLACED UN [place]- ULTRASOUND GUIDED-LR RUNNING AT 75 ML/H. PATIENT IS A SBA TO THE BATHROOM. ZOFRAN AND FENTANYL GIVEN-SEE EMAR. PATIENT IS ON TELEMETRY-RUNNING NSR/SB. PATIENT IS NPO. SURGICAL CONSULT IS PENDING. BED IS IN LOW POSITION WITH WHEELS LOCKED. CALL LIGHT WITHINR REACH.
[2025-02-08 05:54] LABS: BASOPHILS ABSOLUTE AUTO 0.03 K/mm3 (0.00-0.23); BASOPHILS PERCENT AUTO 0 % (0-2); EOSINOPHILS ABSOLUTE AUTO 0.20 K/mm3 (0.00-0.68); EOSINOPHILS PERCENT AUTO 2 % (0-6); Hematocrit 37.9 % (33.0-51.0); Hemoglobin 12.4 g/dL (11.5-16.0); IMMATURE GRAN ABSOLUTE AUTO 0.03 K/mm3 (0.00-0.10); IMMATURE GRAN PERCENT AUTO 0 % (0-1); LYMPHOCYTES ABSOLUTE AUTO 1.45 K/mm3 (0.84-5.20); LYMPHOCYTES PERCENT AUTO 14 % (21-46); MONOCYTES ABSOLUTE AUTO 0.99 K/mm3 (0.16-1.47); MONOCYTES PERCENT AUTO 9 % (4-13); Mean Corpuscular HGB Conc 32.7 g/dL (31.5-36.5); Mean Corpuscular Volume 93 fL (80-100); NEUTROPHILS ABSOLUTE AUTO 7.90 K/mm3 (1.96-9.15); NEUTROPHILS PERCENT AUTO 75 % (41-73); NRBC ABSOLUTE 0.00 K/mm3 (0.00-0.02); NRBC Auto 0.0 /100 WBC (0.0-0.2); Platelet Count 230 K/mm3 (150-400); RDW Coefficient Variation 13.9 % (11.7-14.2); RDW Standard Deviation 47.1 fL (35.1-46.3)
[2025-02-08 06:18] LABS: Anion Gap 11.0 mmol/L (3-11); Blood Urea Nitrogen 18.0 mg/dL (8-24); CO2, Blood 25.0 mmol/L (21-32); Calcium, Blood 8.6 mg/dL (8.5-10.1); Chloride, Blood 106.0 mmol/L (98-108); Creatinine, Blood 0.71 mg/dL (0.40-1.00); Glucose, Blood 82.0 mg/dL (70-99); Potassium, Blood 3.9 mmol/L (3.5-5.5); Sodium, Blood 138.0 mmol/L (136-145)
[2025-02-08] MEDS ORDERED: HYDROmorphone HCl/Pf 1MG SYR IV PRN (11:05)
--- NOTE | 2025-02-08 11:18 | NUR ---
NOTE HELD HEPARIN DUE TO POSSIBLE PROCEDURE FOR SBO. AWAITING DR. DALE TO ROUND ON PT. PT REPORTS ABD PAIN, REPORTS GURGLING, NO GAS, NO BM, PAIN WORSE TODAY VS YESTERDAY. PT REPORTS NO NAUSEA. THIS RN GAVE 25 MCG OF FENT THIS AM. DR. JOHNS D/C RAFI, ORDERED DILAUDID, PT REPORTED FENT. NOT IMPROVING PAIN THIS RN GAVE 1MG OF DILAUDID PER DRRita ORDER. DR. JOHNS REPORTED IF PT HAS EMESIS PT MAY NEED NG TUBE.
--- NOTE | 2025-02-08 11:23 | NUR ---
NOTE DR. DALE ROUNDED ON PT, REPORTED "HOPEFULLY PT WILL NOT NEED PROCEDURE MAY ORDER NG TUBE, WILL REVIEW CT SCAN. HEPARIN SHOT STILL OK TO GIVE"
--- NOTE | 2025-02-08 13:06 | NUR ---
NOTE DR. CHAPA ORDERED NG TUBE PLACEMENT WITH CHEST XRAY VERIFICATION, PT TOLERATED INSERTION WELL. NO GAGING NOTED. AWAITING STAT XRAY PLACEMENT VERIFICATION.
--- NOTE | 2025-02-08 16:12 | NUR ---
NOTE XRAY COMPLETE. RESULTS CAME. REVIEWED WITH JACOBO IGLESIAS RN WHO REPORTED "CAN START SUCTION VIA RESULTS." LOW INTERMITTENT SUCTION ON. GASTRIC CONTENTS NOTED IN TUBE. NG TUBE SECURED IN PLACE.
--- NOTE | 2025-02-08 19:26 | NUR ---
SHIFT SUMMARY PT A&OX4. PT ADMITTED DUE TO SBO. PT IS SBA TO BSC. PT REPORTS PAIN, PAIN MANAGED PER EMAR. PT ON TELE, NO TELE REPORTS NOTED. NG TUBE INSERTED TODAY, CONFIRMED PLACEMENT WITH XRAY. NG TUBE SET AT LOW INTERMITTENT SUCTION. PT NPO. DR. CHAPA CAME TO SEE PT TODAY. PT ON ROOM AIR. VSS. PT HAS FLUIDS RUNNING AT 75ML/HR. PT IN BED, BED IN LOWEST POSITION, CALL LIGHT IN REACH. PT CALLS APPROPRIATE. PT REPORTS NO CHEST PAIN/SOB.
[2025-02-09 04:09] VITALS: BP 142/82
--- NOTE | 2025-02-09 04:59 | NUR ---
SHIFT SUMMARY PATIENT ALERT AND ORIENTED X4, REPORTS ABDOMINAL PAIN AND MEDICATION IS ADMINISTERED PER EMAR.PATIENT MAKE NEEDS KNOWN. PLEASANT AND COOPERATIVE WITH CARE. NO ACUTE CHANGE DURING THIS SHIFT. LR RUNNING AT 75ML/HR. TELE AT SINUS RHYTHM WITH BBB AT 61 HR. VITAL SIGN STABLE. PATIENT IS SELF REPOSITIONING. NG IN PLACE WITH INTERMITTENT SUCTION. BED LOCKED AND IS IN LOW POSITION. CALL LIGHT WITHIN REACH.
[2025-02-09 07:22] VITALS: BP 135/57
--- NOTE | 2025-02-09 08:59 | NUR ---
NOTE TELE D/C. PT REPORTS PAIN. PT REPORTS NO NAUSEA. PT HAS HAD NO BM AND NO GAS. PT HAS FLUIDS RUNNING AT 75ML/HR. PT NPO.
[2025-02-09] MEDS ORDERED: Atropine Sulfate 1% Opth Soln 2ML BTL MM PRN (11:40)
--- NOTE | 2025-02-09 16:28 | NUR ---
NOTE SMALL BOWELL FOLLOW THROUGH STUDY COMPLETE. NG PAUSED DURING STUDY. PT HAS D/C ORDERS FOR NG TUBE. PT ON CLEAR LIQUID DIET AND ADVANCE DIET TOLERATED. THIS RN D/C THE NG TUBE, PT TOLERATED WELL. PT REPORTED BOWEL MOVEMENT. PT IN BED. BED IN LOWEST POSITION, CALL LIGHT IN REACH.
--- NOTE | 2025-02-09 17:21 | NUR ---
SHIFT SUMMARY PT A&OX4. PT ADMITTED DUE TO SBO. PT REPORTS NO CHEST PAIN/SOB. PT REPORTS INTERMITTENT PAIN, BUT REPORTS IMPROVEMENT. PT IS SBA DUE TO LINES. SMALL BOWELL FOLLOW THROUGH COMPLETED TODAY. NG TUBE D/C HX OF COPD, RESPIRATORY CARE DOES NEB TREATMENTS W PT. PT ON ROOM AIR. VSS. LR RUNNING AT 75ML/HR. PT ON CLEAR LIQUID DIET. PT HAD BM TODAY. DR. CHAPA SAW PT TODAY. PT IN BED, BED IN LOWEST POSITION, CALL LIGHT IN REACH. PT CALLS APPROPRIATE.
[2025-02-09 19:12] VITALS: BP 121/56
[2025-02-10 04:11] VITALS: BP 129/61
--- NOTE | 2025-02-10 04:50 | NUR ---
SHIFT SUMMARY PATIENT ALERT AND ORIENTED X4. PATIENT MAKE NEEDS KNOWN. PLEASANT AND COOPERATIVE WITH CARE. LR INFUSING AT 75MLS/HR. PATIENT ON CLEAR LIQUID DIET. VSS. NO ACUTE CHANGE DURING THIS SHIFT. PATIENT SELF REPOSITIONED THROUGHOUT THE SHIFT. BED LOCKED AND LOWEST POSITION. CALL LIGHT WITHIN REACH.
[2025-02-10 05:14] LABS: BASOPHILS ABSOLUTE AUTO 0.03 K/mm3 (0.00-0.23); BASOPHILS PERCENT AUTO 1 % (0-2); EOSINOPHILS ABSOLUTE AUTO 0.18 K/mm3 (0.00-0.68); EOSINOPHILS PERCENT AUTO 3 % (0-6); Hematocrit 36.7 % (33.0-51.0); Hemoglobin 11.9 g/dL (11.5-16.0); IMMATURE GRAN ABSOLUTE AUTO 0.01 K/mm3 (0.00-0.10); IMMATURE GRAN PERCENT AUTO 0 % (0-1); LYMPHOCYTES ABSOLUTE AUTO 1.42 K/mm3 (0.84-5.20); LYMPHOCYTES PERCENT AUTO 21 % (21-46); MONOCYTES ABSOLUTE AUTO 0.91 K/mm3 (0.16-1.47); MONOCYTES PERCENT AUTO 14 % (4-13); Mean Corpuscular HGB Conc 32.4 g/dL (31.5-36.5); Mean Corpuscular Volume 95 fL (80-100); NEUTROPHILS ABSOLUTE AUTO 4.09 K/mm3 (1.96-9.15); NEUTROPHILS PERCENT AUTO 62 % (41-73); NRBC ABSOLUTE 0.00 K/mm3 (0.00-0.02); NRBC Auto 0.0 /100 WBC (0.0-0.2); Platelet Count 211 K/mm3 (150-400); RDW Coefficient Variation 13.8 % (11.7-14.2); RDW Standard Deviation 48.3 fL (35.1-46.3)
[2025-02-10 05:45] LABS: Anion Gap 14.0 mmol/L (3-11); Blood Urea Nitrogen 11.0 mg/dL (8-24); CO2, Blood 21.0 mmol/L (21-32); Calcium, Blood 8.8 mg/dL (8.5-10.1); Chloride, Blood 111.0 mmol/L (98-108); Creatinine, Blood 0.78 mg/dL (0.40-1.00); Glucose, Blood 81.0 mg/dL (70-99); Potassium, Blood 3.8 mmol/L (3.5-5.5); Sodium, Blood 142.0 mmol/L (136-145)
[2025-02-10 07:10] VITALS: BP 142/65
--- NOTE | 2025-02-10 11:45 | NUR ---
DISCHARGE DISCHARGE HOME. IV REMOVED WITH CANJNULA INTAct. w/c out to [place] parking lot. reviewed discharge instructions. no quiestions at this time. CARE ONGOING.
== END 2025-02-10 11:26 | disposition home or self-care (01) | DRG 390 ==
LOC: ER 12:00 → SURS 12:01 → MEDS 12:01
PROVIDERS: Emergency Medicine; ADMIT Internal Medicine
PROC: 0D9670Z Drainage of Stomach with Drainage Device, Via Natural or Artificial Opening (ICD-10-PCS; principal; 2025-02-08)
DX: K56.609 Unspecified intestinal obstruction, unspecified as to partial versus complete obstruction (principal); M81.0 Age-related osteoporosis without current pathological fracture; M54.9 Dorsalgia, unspecified; G89.29 Other chronic pain; J44.9 Chronic obstructive pulmonary disease, unspecified; I10 Essential (primary) hypertension; Z88.8 Allergy status to other drugs, medicaments and biological substances; Z79.899 Other long term (current) drug therapy; I25.2 Old myocardial infarction; Z85.42 Personal history of malignant neoplasm of other parts of uterus; Z85.41 Personal history of malignant neoplasm of cervix uteri; Z98.890 Other specified postprocedural states; Z98.51 Tubal ligation status; Z87.891 Personal history of nicotine dependence; G47.00 Insomnia, unspecified; Z90.710 Acquired absence of both cervix and uterus; Z90.49 Acquired absence of other specified parts of digestive tract; Z90.89 Acquired absence of other organs
CPT/HCPCS: 36415; 71045; 74177; 74250; 80048; 80053; 85025; 94640; 94664; 94760; 96374-59; 96375; 96376; 99285-25; A9270; G0378; J1171; J1644; J2270; J2405; J3010; J7030; J7120; Q9963; Q9967